=== PATIENT | female | born 1965 | race African-American/Black ===

== ENCOUNTER 2016-06-22 18:24 | Emergency (ER) ==
--- NOTE | 2016-06-22 18:59 | PROVIDER DOCUMENTATION ---
Addendum entered and electronically signed by Orion Sheets MD 06/22/16 23:11: Departure - Departure DIAGNOSIS: Post-menopausal bleeding Fibroid tumor Qualifiers: Uterine leiomyoma location: unspecified location Qualified Code(s): D25.9 - Leiomyoma of uterus, unspecified Disposition: HOME 01 Certified Medical Emergency: Emergent Condition: Good Prescriptions: Ferrous Sulfate 325 mg PO BID #90 tablet. Hydrocodone/Acetaminophen [[place] 5-325 Tablet] 1 each PO Q4-6H PRN PRN #12 tablet PRN Reason: Pain Referrals: None,PCP [Primary Care Provider] - Elizabeth Rogel MD [STAFF PHYSICIAN] - Original Note: HPI-Female /OB/Breast - General Source: reports: patient - History of Present Illness-Female /OB Does patient report she is ?: No Location of complaint: reports: RLQ, LLQ, other (superpubic) Radiation: reports: none Quality of Pain: reports: aching, other (soreness) Severity in ED: reports: severe Onset/Duration: reports: 6 days ago Timing: reports: still present, changing over time, getting worse Vaginal Symptoms: reports: abnormal bleeding (spotting) Vaginal Bleeding Amount: Spotting Urinary Symptoms: denies: anuria, dysuria, dribbling, frequency, hematuria, hesitancy, incontinent, nocturia, polyuria, retention, urgency, low back pain Leakage of Fluid: uncertain ("watery, red spotting") Sexual intercourse history: reports: Not Active Contraception: reports: other (post-menopausal) Associated Symptoms: reports: nausea, swelling/mass in abdomen (superpubic), vomiting. denies: anxiety, back/neck pain, chest pain, constipation, cough, diaphoresis, diarrhea, dizziness, fatigue, fever/chills, joint pain, loss of appetite, malaise, muscle aches, seizure, syncope, weakness, trouble walking Similar Symptoms Previously?: No Recently seen or treated by another doctor?: No - LMP/ History Menstrual Status: post-menopausal <Gutierrez Schulz - Last Filed: 06/22/16 22:59> <Orion Sheets - Last Filed: 06/22/16 23:08> - General Chief Complaint: Female Stated Complaint: GENERAL Time Seen by Provider: 06/22/16 18:40 Allergies/Adverse Reactions: Patient Allergies Allergy/AdvReac Type Severity Reaction Status Date / Time sulfamethoxazole Allergy HIVES Verified 06/22/16 18:53 [From Bactrim] trimethoprim [From Bactrim] Allergy HIVES Verified 06/22/16 18:53 Home Medications: Home Medication List Medication Instructions Recorded Confirmed Last Taken Type Aspirin 81 mg PO DAILY 06/22/16 06/22/16 06/22/16 History Docusate Sodium [Doc-Q-Lace] 100 mg PO PRN PRN 06/22/16 06/22/16 Unknown History Ezetimibe/Simvastatin [Vytorin 1 each PO DAILY 06/22/16 06/22/16 06/22/16 History 10-10 mg Tablet] Ferrous Sulfate 325 mg PO BID #90 tablet. 06/22/16 Unknown Rx Ferrous Sulfate 325 mg PO DAILY 06/22/16 06/22/16 06/22/16 History Hydrocodone/Acetaminophen [[place] 1 each PO Q4-6H PRN PRN #12 tablet 06/22/16 Unknown Rx 5-325 Tablet] LISINOpril [Prinivil] 10 mg PO DAILY 06/22/16 06/22/16 06/22/16 History Ranitidine [Zantac] 300 mg PO BID 06/22/16 06/22/16 06/22/16 History - History of Present Illness-Female /OB Nature of Presenting Problem: Pt is a 50 yof who presents to ER with CC of vaginal spotting x4 days. Pt reports that she has not had a menstrual cycle x2 years, but started to have moderate to severe bilateral lower quadrant cramping on Saturday, still present , and on Saturday began to have bright red, watery, vaginal spotting that has gotten progressively worse and became 10/10 today. Pt reports that this morning , she drank several cups of coffees, but vomited it up this morning at approximately 0900. Pt reports that she has only vomited 1 time today, but does report that her abdominal cramping has made her nauseas. (Gutierrez Schulz) Review of Systems - Adult - REVIEW OF SYSTEMS - ADULT Constitutional: denies: chills, fever, fatique, night sweats, weight gain, weight loss Eyes: reports: no symptoms reported Ears, Nose, Mouth & Throat: reports: no symptoms reported Cardiovascular: denies: chest pain, edema, heart murmur, irregular heart rate, orthopnea, palpitations, poor circulation, PND, syncope Respiratory: denies: chronic cough, cough, dyspnea on exertion, excessive sputum production, hemoptysis, pleurisy, shortness of breath, wheezing Gastrointestinal: reports: abdominal pain, nausea, vomiting. denies: hematemesis, constipation, diarrhea, difficulty swallowing, frequent heartburn, poor appetite, rectal bleeding Genitourinary: reports: other (spotting). denies: dysuria, discharge, frequency , flank pain, frequent UTI's, hematuria, hesitency, incontinence, urinary retention, urgency Musculoskeletal: reports: no symptoms reported Integumentary: reports: no symptoms reported Neurological: reports: no symptoms reported Psychiatric: reports: no symptoms reported Endocrine: reports: no symptoms reported Hematologic/Lymphatic: reports: no symptoms reported Allergic/Immunologic: reports: no symptoms reported All Other Systems: Reviewed and Negative <Gutierrez Schulz - Last Filed: 06/22/16 22:59> Past History - Adult - PAST MEDICAL HISTORY-ADULT Review of Records: reports: Nursing Assessment Review, Medications Reviewed Obstetrical/Gynecological: reports: fibroids Endocrine/Immune: reports: Diabetes Diabetes Type: Type 1 - IMMUNIZATION STATUS Childhood Immunizations: See Nurse Assessment Flu Vaccine: See Nurse Assessment <Gutierrez Schulz - [place] Filed: 06/22/16 22:59> Physical Exam-General - PHYSICAL EXAM-ADULT Initial Vital Signs Reviewed: Yes - CONSTITUTIONAL General Appearance: appears well, alert, moderate distress. negative: no apparent distress, mild distress, severe distress, cachetic, obese, thin, anxious, lethargic, slow to respond, obtunded, combative - HEAD, EARS, NOSE, MOUTH & THROAT HENMT: normocephalic/atraumatic, moist mucous membranes, normal ENT inspection. negative: hearing deficit, pharyngeal erythema, tonsillar exudate - NECK Neck: non-tender, full range of motion, supple. negative: C-spine tenderness, limited range of motion, lymphadenopathy - RESPIRATORY Respiratory: chest non-tender, lungs clear, normal breath sounds. negative: respiratory distress, decreased breath sounds, accessory muscle use, wheezing - CARDIOVASCULAR Cardiovascular: normal peripheral pulses, regular rate, rhythm. negative: bradycardia, tachycardia, irregularly irregular - GASTROINTESTINAL (ABDOMEN) Abdominal Exam: normal bowel sounds, tenderness (gneralized; moreprominent in bilateral lower quadrants), mass (superpubic). negative: non tender, soft, abnormal bowel sounds, distended, guarding, rigid, rebound - LYMPHATIC Lymphatic: no adenopathy. negative: axilla node tender, cervical node tenderness, inguinal node tender - MUSCULOSKELETAL Back Exam: no CVA tenderness, no vertebral tenderness. negative: CVA tenderness , decreased range of motion, muscle spasm, swelling, vertebral tenderness Extremity: normal range of motion, non-tender, normal gait. negative: calf tenderness, deformity, erythema, inflammation, pulse deficit, pedal edema, slow capillary refill, swelling, tenderness - SKIN Integumentary: normal color, normal turgor, warm/dry. negative: abrasion(s), erythema, swelling, warm - NEUROLOGIC Neurologic: grossly normal, no motor/sensory deficits. negative: facial droop, focal weakness, motor weakness, sensory deficit - PSYCHIATRIC Psych/Mental Status: normal mood/affect, normal thought content, normal thought process, oriented x 3 <Gutierrez Schulz - Last Filed: 06/22/16 22:59> Progress - REASSESSMENT Reassessment #1 Time Reassessed: 22:55 Status: other (Dr. Sheets discussed results of pt's radiology and pt requested to be admitted so she may see a CANCER PROGRAM COORDINATOR in the morning. Pt was also hypotensive (92/50)) - CT/MRI 1 CT Study: Abdomen, Pelvis Impression: See EMR Report (Large pelvic mass, measuring 11.5x10.7x11.6cm; This may be enlarged uterus with multiple fibroids, largest measuring about 10x7.3cm and necrotic; Constipation; Retained fluid in small bowel.) - CONSULTS/PCP/HOSPITALIST Notification #1 *Consult/PCP/Hospitalist*: Dr. Estrada (Gynocologist) Time Discussed: 22:56 Consult Disposition: other (Have pt follow up with Dr. oRgel on Saturday) <Gutierrez Schulz - Last Filed: 06/22/16 22:59> <Orion Sheets - Last Filed: 06/22/16 23:08> - PLAN OF CARE/RESULTS Progress/Plan/Lab Results: POC: Urine labs/Renal studies Vital Signs - 24 hr 06/22/16 18:27 Temperature 98.6 F Pulse Rate 90 Respiratory 18 Rate Blood Pressure 101/51 O2 Sat by Pulse 98 Oximetry Orders Category Date Time Status CT ABD/PELVIS W/ IV CONT ONLY [CT] Stat Exams 06/22/16 19:01 Taken BMP [BASIC METABOLIC PANEL] [CHEM] Stat Lab 06/22/16 19:00 Completed CBC WITH ELECTRONIC DIFF [HEME] Stat Lab 06/22/16 19:00 Completed UA NIMS W/REFLEX CULT [URINALYSIS] Stat Lab 06/22/16 20:29 Completed Morphine Med 06/22/16 21:06 Discontinued 4 mg IV NOW ONE Ondansetron [Zofran] Med 06/22/16 21:06 Discontinued 4 mg IV NOW ONE Laboratory Tests 06/22/16 06/22/16 06/22/16 19:00 19:00 20:29 WBC 14.63 H RBC 3.76 L Hgb 11.8 L Hct 34.8 L MCV 92.6 MCH 31.4 H MCHC 33.9 RDW Std Deviation 13.0 Plt Count 308 MPV 10.4 Immature Gran % (Auto) 1.0 H Neut % (Auto) 73.9 Lymph % (Auto) 16.4 L [place] % (Auto) 7.9 Eos % (Auto) 0.7 Baso % (Auto) 0.1 Immature Gran # (Auto) 0.14 H Neut # (Auto) 10.81 H Lymph # (Auto) 2.40 [place] # (Auto) 1.16 H Eos # (Auto) 0.10 Baso # (Auto) 0.02 Sodium 139 Potassium 3.8 Chloride 102 Carbon Dioxide 22 L Anion Gap 15 BUN 19 Creatinine 1.0 H Estimated GFR/1.73 m2 59 BUN/Creatinine Ratio 19 Glucose 78 Calculated Osmolality 279 Calcium 9.6 Urine Source CLEAN CATCH Urine Color YELLOW Urine Turbidity HAZY Urine pH 5.5 Ur Specific [place] 1.028 Urine Protein 100 A Ur Glucose (Stick) NEGATIVE Ur Ketones (Stick) 10 A Urine Blood MODERATE A Urine Nitrite NEGATIVE Urine Bilirubin SMALL A Urobilinogen Dipstick 4 A Urine Leukocytes NEGATIVE Urine WBC (Auto) <10 Urine RBC (Auto) <10 U Epithel Cells (Auto) >10 A Urine Bacteria (Auto) 1+ (Gutierrez Schulz) Departure - Departure Time of Disposition Order: 22:56 <Gutierrez Schulz - Last Filed: 06/22/16 22:59> - Departure Time of Disposition Order: 23:00 Certified Medical Emergency: Emergent <Orion Sheets - Last Filed: 06/22/16 23:08> - Departure DIAGNOSIS: Post-menopausal bleeding Fibroid tumor Qualifiers: Uterine leiomyoma location: unspecified location Qualified Code(s): D25.9 - Leiomyoma of uterus, unspecified Disposition: HOME 01 Condition: Good Prescriptions: Ferrous Sulfate 325 mg PO BID #90 tablet. Hydrocodone/Acetaminophen [[place]idge 5-325 Tablet] 1 each PO Q4-6H PRN PRN #12 tablet PRN Reason: Pain Referrals: None,PCP [Primary Care Provider] - Attestation - Scribe Verification/Attestation Scribe:: Gutierrez Schulz Acting as Scribe for:: Orion Sheets Scribe documention review:: This chart was documented by a scribe and accurately reflects the service the provider performed and the decisions made by the provider. <Gutierrez Schulz - Last Filed: 06/22/16 22:59> Physician Attestation
[2016-06-22 19:15] LABS: MANUAL DIFF NEEDED? NO
[2016-06-22 19:18] LABS: BASO% 0.1 % (0.0-0.8); EOS% 0.7 % (0.0-10.0); HEMATOCRIT 34.8 % (37.0-47.0); HEMOGLOBIN 11.8 g/dL (12.0-16.0); IMM GRAN# 0.14 X1000 (0.0-0.04); LYMPH% 16.4 % (20.5-51.1); MCH 31.4 PG (27-31); MCHC 33.9 g/dL (33-37); MCV 92.6 FL (81-99); MONO# 1.16 X1000 (0.11-0.59); MONO% 7.9 % (1.7-9.3); MPV 10.4 FL (7.4-10.4); NEUT% 73.9 % (42.2-75.2); PLT 308 X1000 (130-400); RBC 3.76 XMIL (4.2-5.4)
[2016-06-22 19:44] LABS: CALCIUM 9.6 mg/dL (8.8-10.2); POTASSIUM 3.8 mmol/L (3.5-5.1)
[2016-06-22 20:36] LABS: URINE CULTURE NEEDED? NO; URINE MICRO REVIEW NEEDED? NO; URINE SOURCE CLEAN CATCH
[2016-06-22 20:47] LABS: BILIRUBIN URINE SMALL (NEGATIVE); BLOOD URINE MODERATE (NEGATIVE); COLOR YELLOW; GLUCOSE URINE NEGATIVE (NEGATIVE); LEUKOCYTES URINE NEGATIVE (NEGATIVE); NITRITE URINE NEGATIVE (NEGATIVE); PH URINE 5.5; PROTEIN URINE 100 mg/dL (NEGATIVE); SP GRAVITY URINE 1.028; TURBIDITY URINE HAZY (CLEAR); UR EPITHELIAL CELLS >10 /HPF (<10); URINE BACTERIA 1+ /HPF; URINE RBC <10 /HPF (<10); URINE WBC <10 /HPF (<10); UROBILINOGEN URINE 4 mg/dL (NORMAL)
[2016-06-22] MEDS ORDERED: ZOFRAN IV ONE (21:06)
[2016-06-22] MEDS ORDERED: MORPHINE IV ONE (21:06)
[2016-06-22 23:41] VITALS: BP 115/54
--- NOTE | 2016-06-23 09:40 | Diag Imaging Result Document ---
PROCEDURE NAME: CT ABD/PELVIS W/ IV CONT ONLY - 06/22/2016 CT ABDOMEN AND PELVIS WITH IV CONTRAST ONLY: Exam performed with intravenous contrast only per request of the referring provider. A dose-reduction protocol was used. COMPARISON: No comparison exam. FINDINGS: There is a nonspecific 5 mm noncalcified nodule at the lateral left lung base. There are no substantial abnormalities of the liver, adrenal glands, or pancreas identified. There are calcified granulomas from old granulomatous disease, and there is a nonspecific tiny low-density area of the spleen. The spleen is normal size. There are no calcified gallstones seen. The bilateral kidneys enhance homogeneously. There is no hydronephrosis. There are no substantially enlarged lymph nodes identified. There is a large heterogeneous pelvic mass which measures 11.5 x 10.7 x 11.6 cm. There is a 10 x 7.3 cm low-density area within the mass, which may represent necrotic fibroid. There is a 4.7 x 4.3 cm pedunculated lesion at the left side of the mass, which may represent necrotic fibroid. The pelvic mass may represent an enlarged uterus with multiple fibroids, some of which are necrotic. The fibroids may be benign or malignant. The urinary bladder is displaced anteriorly and to the right by the pelvic mass. There is no substantial free fluid identified, although there is possibly a small amount of free fluid in the posterior pelvis. There is retained fluid in the small bowel. There is no substantial small bowel distention identified. There is retained fecal debris in the colon suggesting constipation. There is no abscess identified. There is no free air. IMPRESSION: Large heterogeneous pelvic mass measuring 11.5 x 10.7 x 11.6 cm. This may represent an enlarged uterus with multiple fibroids, some of which are necrotic. The largest necrotic area measures 10 x 7.3 cm. If this does represent enlarged fibroid uterus, the fibroids may be benign or malignant. Retained fluid in small bowel. No substantial small bowel distention. Constipation. Nonspecific 5 mm nodule at left lung base. Preliminary results were provided at 9:33 p.m. on 06/22/2016. [facility]
== END 2016-06-22 23:40 | disposition home or self-care (01) ==
LOC: ED 18:24
DX: D25.9 Leiomyoma of uterus, unspecified (principal); N95.0 Postmenopausal bleeding; R10.31 Right lower quadrant pain; R10.32 Left lower quadrant pain; R10.30 Lower abdominal pain, unspecified; R11.2 Nausea with vomiting, unspecified; E10.9 Type 1 diabetes mellitus without complications; R19.00 Intra-abdominal and pelvic swelling, mass and lump, unspecified site; Z79.899 Other long term (current) drug therapy; Z79.82 Long term (current) use of aspirin
CPT/HCPCS: 74177; 80048; 81001; 82948; 85025; J2270; J2405; Q9967

== ENCOUNTER 2016-06-30 10:31 | Inpatient (IN) ==
--- NOTE | 2016-06-30 11:07 | PROVIDER DOCUMENTATION ---
HPI-Abdominal Pain/GI Problem - General Chief Complaint: Female Stated Complaint: RECHECK Time Seen by Provider: 06/30/16 10:57 Source: patient Allergies/Adverse Reactions: Patient Allergies Allergy/AdvReac Type Severity Reaction Status Date / Time sulfamethoxazole Allergy HIVES Verified 06/30/16 12:18 [From Bactrim] trimethoprim [From Bactrim] Allergy HIVES Verified 06/30/16 12:18 Home Medications: Home Medication List Medication Instructions Recorded Confirmed Last Taken Type Aspirin 81 mg PO DAILY 06/22/16 06/30/16 06/30/16 08:30 History Docusate Sodium [Doc-Q-Lace] 100 mg PO PRN PRN 06/22/16 06/30/16 Unknown History Ezetimibe/Simvastatin [Vytorin 1 each PO DAILY 06/22/16 06/30/16 06/30/16 08:30 History 10-10 mg Tablet] Ferrous Sulfate 325 mg PO BID #90 tablet. 06/22/16 06/30/16 06/30/16 08:30 Rx Hydrocodone/Acetaminophen [Codorus 1 each PO Q4-6H PRN PRN #12 tablet 06/22/1603/0806/27/16 21:00 Rx 5-325 Tablet] LISINOpril [Prinivil] 10 mg PO DAILY 06/22/16 06/30/16 06/30/16 08:30 History Ranitidine [Zantac] 300 mg PO BID 06/22/16 06/30/16 06/30/16 08:30 History Insulin Aspart Prot/Insuln Asp 7 unit SQ DAILY 06/30/16 06/30/16 06/30/16 07:30 History [Novolog Mix 70-30 Vial] Insulin Glargine [Lantus] 10 unit SUBQ QHS 06/30/16 06/30/16 06/29/16 22:00 History - History of Present Illness-ABD Nature of Presenting Problems: A 50 y/o F with multiple PMH presented to ED with worsening of abdominal pain, was seen a week ago and was diagnosed with possible fibroids and possible necrotic area, was given norco and was recommended out pt follow up with OBGYN, pt has pending appt after 4 days, pt taking pain medications upto a point when pain is progressing and getting worse, has lower quadrant pain and noted mild spotting which was present in the past, denies n/v/d/mi/CP/SOB. Reviewed CT scan results from previous visit Review of Systems - Adult - REVIEW OF SYSTEMS - ADULT Constitutional: reports: no symptoms reported Eyes: reports: no symptoms reported Ears, Nose, Mouth & Throat: reports: no symptoms reported Cardiovascular: reports: no symptoms reported Respiratory: reports: no symptoms reported Gastrointestinal: reports: see HPI Genitourinary: reports: no symptoms reported Musculoskeletal: reports: no symptoms reported Integumentary: reports: no symptoms reported Neurological: reports: no symptoms reported Psychiatric: reports: no symptoms reported Endocrine: reports: no symptoms reported Hematologic/Lymphatic: reports: no symptoms reported Allergic/Immunologic: reports: no symptoms reported All Other Systems: Reviewed and Negative Past History - Adult - PAST MEDICAL HISTORY-ADULT Review of Records: reports: Old Records Reviewed, Nursing Assessment Review, Medications Reviewed, Social history reviewed & non-contributory. Major Childhood Illnesses: reports: denies history Cardiovascular: reports: denies history Respiratory: reports: denies history Gastrointestinal: reports: denies history Obstetrical/Gynecological: reports: fibroids Genitourinary: reports: denies history Musculoskeletal: reports: denies history Neurological: reports: denies history Endocrine/Immune: reports: Diabetes Other Conditions: reports: denies history - IMMUNIZATION STATUS Childhood Immunizations: See Nurse Assessment Flu Vaccine: See Nurse Assessment - FAMILY HISTORY Family History: reviewed, not pertinent Physical Exam-General - PHYSICAL EXAM-ADULT Initial Vital Signs Reviewed: Yes - CONSTITUTIONAL General Appearance: appears well, mild distress - EYES Eyes: PERRL/EOMI, pink conjunctivae - HEAD, EARS, NOSE, MOUTH & THROAT HENMT: normocephalic/atraumatic, moist mucous membranes, normal ENT inspection - NECK Neck: non-tender, full range of motion - RESPIRATORY Respiratory: chest non-tender, lungs clear, normal breath sounds, no pleuratic chest pain, no respiratory distress, no accessory muscle use - CARDIOVASCULAR Cardiovascular: normal peripheral pulses, regular rate, rhythm, no edema - GASTROINTESTINAL (ABDOMEN) Abdominal Exam: normal bowel sounds, tenderness (moderate tenderness in lower quadrants, noted lower abdominal mass on palpation tender) - GENITOURINARY Female Genitalia/Pelvic Exam: deferred Rectal Exam: deferred - MUSCULOSKELETAL Back Exam: normal inspection, no CVA tenderness, no vertebral tenderness Extremity: normal range of motion, non-tender, normal gait, normal inspection - SKIN Integumentary: normal color, normal turgor - NEUROLOGIC Neurologic: home care music therapist II-XII nml as tested, grossly normal - PSYCHIATRIC Psych/Mental Status: normal mood/affect, normal thought content Progress - PLAN OF CARE/RESULTS Progress/Plan/Lab Results: Laboratory Tests 06/30/16 06/30/16 06/30/16 11:52 12:15 12:15 WBC 16.92 H RBC 3.74 L Hgb 11.8 L Hct 34.8 L MCV 93.0 MCH 31.6 H MCHC 33.9 RDW Std Deviation 13.2 Plt Count 494 H MPV 10.3 Immature Gran % (Auto) 1.7 H Neut % (Auto) 76.6 H Lymph % (Auto) 14.7 L Wirt % (Auto) 5.9 Eos % (Auto) 0.9 Baso % (Auto) 0.2 Immature Gran # (Auto) 0.29 H Neut # (Auto) 12.96 H Lymph # (Auto) 2.48 Wirt # (Auto) 0.99 H Eos # (Auto) 0.16 Baso # (Auto) 0.04 Sodium 137 Potassium 3.4 L Chloride 97 L Carbon Dioxide 25 Anion Gap 15 BUN 7 L Creatinine 0.7 Estimated GFR/1.73 m2 > 60 BUN/Creatinine Ratio 10 Glucose 320 H POC Glucose Calculated Osmolality 284 Calcium 9.9 Total Bilirubin 0.41 AST 9 L ALT 7 L Alkaline Phosphatase 110 H Total Protein 7.2 Albumin 3.2 L Globulin 4.0 Albumin/Globulin Ratio 0.8 Amylase 46 Lipase 8 L Urine Source CLEAN CATCH Urine Color YELLOW Urine Turbidity CLEAR Urine pH 5.5 Ur Specific [place] 1.027 Urine Protein 50 A Ur Glucose (Stick) >1000 A Ur Ketones (Stick) NEGATIVE Urine Blood NEGATIVE Urine Nitrite NEGATIVE Urine Bilirubin NEGATIVE Urobilinogen Dipstick 2 A Urine Leukocytes NEGATIVE Urine WBC (Auto) <10 Urine RBC (Auto) <10 U Epithel Cells (Auto) <10 Urine Bacteria (Auto) NEGATIVE 06/30/16 15:09 WBC RBC Hgb Hct MCV MCH MCHC RDW Std Deviation Plt Count MPV Immature Gran % (Auto) Neut % (Auto) Lymph % (Auto) Wirt % (Auto) Eos % (Auto) Baso % (Auto) Immature Gran # (Auto) Neut # (Auto) Lymph # (Auto) Wirt # (Auto) Eos # (Auto) Baso # (Auto) Sodium Potassium Chloride Carbon Dioxide Anion Gap BUN Creatinine Estimated GFR/1.73 m2 BUN/Creatinine Ratio Glucose POC Glucose 40 L D Calculated Osmolality Calcium Total Bilirubin AST ALT Alkaline Phosphatase Total Protein Albumin Globulin Albumin/Globulin Ratio Amylase Lipase Urine Source Urine Color Urine Turbidity Urine pH Ur Specific [place] Urine Protein Ur Glucose (Stick) Ur Ketones (Stick) Urine Blood Urine Nitrite Urine Bilirubin Urobilinogen Dipstick Urine Leukocytes Urine WBC (Auto) Urine RBC (Auto) U Epithel Cells (Auto) Urine Bacteria (Auto) Vital Signs Temp Pulse Resp BP Pulse Ox 06/30/16 10:38 98.4 F 88 20 122/77 100 sulfamethoxazole [From Bactrim] Allergy (Verified 06/30/16 12:18) HIVES trimethoprim [From Bactrim] Allergy (Verified 06/30/16 12:18) HIVES Aspirin 81 mg PO DAILY 06/22/16 Docusate Sodium [Doc-Q-Lace] 100 mg PO PRN PRN 06/22/16 Ezetimibe/Simvastatin [Vytorin 10-10 mg Tablet] 1 each PO DAILY 06/22/16 Ferrous Sulfate 325 mg PO BID #90 tablet. 06/22/16 Hydrocodone/Acetaminophen [Codorus 5-325 Tablet] 1 each PO Q4-6H PRN PRN #12 tablet 06/22/16 LISINOpril [Prinivil] 10 mg PO DAILY 06/22/16 Ranitidine [Zantac] 300 mg PO BID 06/22/16 Insulin Aspart Prot/Insuln Asp [Novolog Mix 70-30 Vial] 7 unit SQ DAILY Insulin Glargine [Lantus] 10 unit SUBQ QHS 06/30/16 Dietary Diet NPO Start Sat Jun 30 1100 Laboratory 06/30/16 06/30/16 06/30/16 15:09 12:15 12:15 WBC 16.92 H RBC 3.74 L Hgb 11.8 L Hct 34.8 L MCV 93.0 MCH 31.6 H MCHC 33.9 RDW Std Deviation 13.2 Plt Count 494 H MPV 10.3 Immature Gran % (Auto) 1.7 H Neut % (Auto) 76.6 H Lymph % (Auto) 14.7 L Wirt % (Auto) 5.9 Eos % (Auto) 0.9 Baso % (Auto) 0.2 Immature Gran # (Auto) 0.29 H Neut # (Auto) 12.96 H Lymph # (Auto) 2.48 Wirt # (Auto) 0.99 H Eos # (Auto) 0.16 Baso # (Auto) 0.04 Sodium 137 Potassium 3.4 L Chloride 97 L Carbon Dioxide 25 Anion Gap 15 BUN 7 L Creatinine 0.7 Estimated GFR/1.73 m2 > 60 BUN/Creatinine Ratio 10 Glucose 320 H POC Glucose 40 L D Calculated Osmolality 284 Calcium 9.9 Total Bilirubin 0.41 AST 9 L ALT 7 L Alkaline Phosphatase 110 H Total Protein 7.2 Albumin 3.2 L Globulin 4.0 Albumin/Globulin Ratio 0.8 Amylase 46 Lipase 8 L Urine Source Urine Color Urine Turbidity Urine pH Ur Specific [place] Urine Protein Ur Glucose (Stick) Ur Ketones (Stick) Urine Blood Urine Nitrite Urine Bilirubin Urobilinogen Dipstick Urine Leukocytes Urine WBC (Auto) Urine RBC (Auto) U Epithel Cells (Auto) Urine Bacteria (Auto) 06/30/16 11:52 WBC RBC Hgb Hct MCV MCH MCHC RDW Std Deviation Plt Count MPV Immature Gran % (Auto) Neut % (Auto) Lymph % (Auto) Wirt % (Auto) Eos % (Auto) Baso % (Auto) Immature Gran # (Auto) Neut # (Auto) Lymph # (Auto) Wirt # (Auto) Eos # (Auto) Baso # (Auto) Sodium Potassium Chloride Carbon Dioxide Anion Gap BUN Creatinine Estimated GFR/1.73 m2 BUN/Creatinine Ratio Glucose POC Glucose Calculated Osmolality Calcium Total Bilirubin AST ALT Alkaline Phosphatase Total Protein Albumin Globulin Albumin/Globulin Ratio Amylase Lipase Urine Source CLEAN CATCH Urine Color YELLOW Urine Turbidity CLEAR Urine pH 5.5 Ur Specific [place] 1.027 Urine Protein 50 A Ur Glucose (Stick) >1000 A Ur Ketones (Stick) NEGATIVE Urine Blood NEGATIVE Urine Nitrite NEGATIVE Urine Bilirubin NEGATIVE Urobilinogen Dipstick 2 A Urine Leukocytes NEGATIVE Urine WBC (Auto) <10 Urine RBC (Auto) <10 U Epithel Cells (Auto) <10 Urine Bacteria (Auto) NEGATIVE Vital Signs Temp Pulse Resp BP Pulse Ox 06/30/16 10:38 98.4 F 88 20 122/77 100 sulfamethoxazole [From Bactrim] Allergy (Verified 06/30/16 12:18) HIVES trimethoprim [From Bactrim] Allergy (Verified 06/30/16 12:18) HIVES Aspirin 81 mg PO DAILY 06/22/16 Docusate Sodium [Doc-Q-Lace] 100 mg PO PRN PRN 06/22/16 Ezetimibe/Simvastatin [Vytorin 10-10 mg Tablet] 1 each PO DAILY 06/22/16 Ferrous Sulfate 325 mg PO BID #90 tablet. 06/22/16 Hydrocodone/Acetaminophen [Codorus 5-325 Tablet] 1 each PO Q4-6H PRN PRN #12 tablet 06/22/16 LISINOpril [Prinivil] 10 mg PO DAILY 06/22/16 Ranitidine [Zantac] 300 mg PO BID 06/22/16 Insulin Aspart Prot/Insuln Asp [Novolog Mix 70-30 Vial] 7 unit SQ DAILY Insulin Glargine [Lantus] 10 unit SUBQ QHS 06/30/16 Dietary Diet NPO Start Sat Jun 30 1100 Laboratory 06/30/16 06/30/16 06/30/16 15:09 12:15 12:15 WBC 16.92 H RBC 3.74 L Hgb 11.8 L Hct 34.8 L MCV 93.0 MCH 31.6 H MCHC 33.9 RDW Std Deviation 13.2 Plt Count 494 H MPV 10.3 Immature Gran % (Auto) 1.7 H Neut % (Auto) 76.6 H Lymph % (Auto) 14.7 L Wirt % (Auto) 5.9 Eos % (Auto) 0.9 Baso % (Auto) 0.2 Immature Gran # (Auto) 0.29 H Neut # (Auto) 12.96 H Lymph # (Auto) 2.48 Wirt # (Auto) 0.99 H Eos # (Auto) 0.16 Baso # (Auto) 0.04 Sodium 137 Potassium 3.4 L Chloride 97 L Carbon Dioxide 25 Anion Gap 15 BUN 7 L Creatinine 0.7 Estimated GFR/1.73 m2 > 60 BUN/Creatinine Ratio 10 Glucose 320 H POC Glucose 40 L D Calculated Osmolality 284 Calcium 9.9 Total Bilirubin 0.41 AST 9 L ALT 7 L Alkaline Phosphatase 110 H Total Protein 7.2 Albumin 3.2 L Globulin 4.0 Albumin/Globulin Ratio 0.8 Amylase 46 Lipase 8 L Urine Source Urine Color Urine Turbidity Urine pH Ur Specific [place] Urine Protein Ur Glucose (Stick) Ur Ketones (Stick) Urine Blood Urine Nitrite Urine Bilirubin Urobilinogen Dipstick Urine Leukocytes Urine WBC (Auto) Urine RBC (Auto) U Epithel Cells (Auto) Urine Bacteria (Auto) 06/30/16 11:52 WBC RBC Hgb Hct MCV MCH MCHC RDW Std Deviation Plt Count MPV Immature Gran % (Auto) Neut % (Auto) Lymph % (Auto) Wirt % (Auto) Eos % (Auto) Baso % (Auto) Immature Gran # (Auto) Neut # (Auto) Lymph # (Auto) Wirt # (Auto) Eos # (Auto) Baso # (Auto) Sodium Potassium Chloride Carbon Dioxide Anion Gap BUN Creatinine Estimated GFR/1.73 m2 BUN/Creatinine Ratio Glucose POC Glucose Calculated Osmolality Calcium Total Bilirubin AST ALT Alkaline Phosphatase Total Protein Albumin Globulin Albumin/Globulin Ratio Amylase Lipase Urine Source CLEAN CATCH Urine Color YELLOW Urine Turbidity CLEAR Urine pH 5.5 Ur Specific [place] 1.027 Urine Protein 50 A Ur Glucose (Stick) >1000 A Ur Ketones (Stick) NEGATIVE Urine Blood NEGATIVE Urine Nitrite NEGATIVE Urine Bilirubin NEGATIVE Urobilinogen Dipstick 2 A Urine Leukocytes NEGATIVE Urine WBC (Auto) <10 Urine RBC (Auto) <10 U Epithel Cells (Auto) <10 Urine Bacteria (Auto) NEGATIVE - CT/MRI 1 CT Study: Abdomen Impression: See EMR Report (worsening from the previous one) Comparison with other Films: changes noted - CONSULTS/PCP/HOSPITALIST Notification #1 *Consult/PCP/Hospitalist*: Dr Milton Time Discussed: 15:44 Consult Disposition: Admit #2 Consult: Dr Pebbles MEDRANO Consult Disposition: Will see in ED Departure - Departure Time of Disposition Order: 15:45 DIAGNOSIS: Pelvic mass in female, Intractable abdominal pain, Post-menopausal bleeding Disposition: ADMITTED INPATIENT 09 Certified Medical Emergency: Emergent Condition: Stable
[2016-06-30 12:06] LABS: URINE CULTURE NEEDED? NO; URINE MICRO REVIEW NEEDED? NO; URINE SOURCE CLEAN CATCH
[2016-06-30 12:08] LABS: BILIRUBIN URINE NEGATIVE (NEGATIVE); BLOOD URINE NEGATIVE (NEGATIVE); COLOR YELLOW; GLUCOSE URINE >1000 mg/dL (NEGATIVE); LEUKOCYTES URINE NEGATIVE (NEGATIVE); NITRITE URINE NEGATIVE (NEGATIVE); PH URINE 5.5; PROTEIN URINE 50 mg/dL (NEGATIVE); SP GRAVITY URINE 1.027; TURBIDITY URINE CLEAR (CLEAR); UROBILINOGEN URINE 2 mg/dL (NORMAL)
[2016-06-30 12:10] LABS: UR EPITHELIAL CELLS <10 /HPF (<10); URINE BACTERIA NEGATIVE /HPF; URINE RBC <10 /HPF (<10); URINE WBC <10 /HPF (<10)
[2016-06-30 12:35] LABS: MANUAL DIFF NEEDED? NO
[2016-06-30 12:43] LABS: BASO% 0.2 % (0.0-0.8); EOS# 0.16 X1000 (0.0-0.7); EOS% 0.9 % (0.0-10.0); HEMATOCRIT 34.8 % (37.0-47.0); HEMOGLOBIN 11.8 g/dL (12.0-16.0); IMM GRAN# 0.29 X1000 (0.0-0.04); IMM GRAN% 1.7 % (0.0-0.5); LYMPH# 2.48 X1000 (1.2-3.4); LYMPH% 14.7 % (20.5-51.1); MCH 31.6 PG (27-31); MCHC 33.9 g/dL (33-37); MONO# 0.99 X1000 (0.11-0.59); MONO% 5.9 % (1.7-9.3); MPV 10.3 FL (7.4-10.4); NEUT% 76.6 % (42.2-75.2); PLT 494 X1000 (130-400); RBC 3.74 XMIL (4.2-5.4)
[2016-06-30 13:09] LABS: AGAP 15; ALBUMIN 3.2 g/dL (3.5-5.0); ALKALINE PHOSPHATASE 110 U/L (32-104); AMYLASE 46 U/L (20-200); BUN 7 mg/dL (8-22); CALCIUM 9.9 mg/dL (8.8-10.2); CHLORIDE 97 mmol/L (98-107); COSMO 284; GOT 9 U/L (10-30); GPT 7 U/L (10-36); LIPASE 8 U/L (13-60); POTASSIUM 3.4 mmol/L (3.5-5.1); SODIUM 137 mmol/L (136-145); TCO2 25 mmol/L (25-35); TOTAL BILIRUBIN 0.41 mg/dL (0.20-1.00); TOTAL PROTEIN 7.2 g/dL (6.3-8.3)
--- NOTE | 2016-06-30 14:16 | Diag Imaging Result Document ---
PROCEDURE NAME: CT ABD/PELVIS W/ IV CONT ONLY - 06/30/2016 CT ABDOMEN AND PELVIS WITH IV CONTRAST ONLY: Exam performed with intravenous contrast only per request of the referring provider. A dose-reduction protocol was used. COMPARISON: 06/22/2016. FINDINGS: There is a large lobulated, heterogeneous pelvic mass again seen. The mass appears a bit larger compared to the previous exam. There is a small amount of free fluid in the posterior pelvis. There is no evidence of bowel obstruction. There is retained fecal debris in the colon, which appears to have decreased mildly. There is no abscess identified. There is no free air. There are no acute abnormalities of the liver, spleen, adrenal glands, or pancreas identified. There are no calcified gallstones seen. The bilateral kidneys enhance homogeneously. There is no substantial hydronephrosis. IMPRESSION: 1. Some interval enlargement of the large pelvic mass which was seen on the previous exam. Small amount of free fluid in posterior pelvis. 2. No bowel obstruction. Slight improvement in constipation compared to prior. 3. No abscess. No free air.
[2016-06-30] MEDS ORDERED: ZOFRAN IV ONE (14:59)
[2016-06-30] MEDS ORDERED: ZOSYN 4.5 GM/NS 100 ML IV ONE (14:59)
[2016-06-30] MEDS ORDERED: DILAUDID IV ONE (14:59)
[2016-06-30] MEDS ORDERED: ZOFRAN IV PRN (16:37)
[2016-06-30] MEDS ORDERED: DILAUDID IV PRN (16:39)
[2016-06-30] MEDS ORDERED: PROTONIX IV SCH (16:45)
[2016-06-30] MEDS ORDERED: SODIUM CHLORIDE 0.9% INJ SCH (16:45)
[2016-06-30] MEDS ORDERED: NS 1,000 ML IV SCH (16:45)
[2016-06-30] MEDS ORDERED: KLOR-CON PO ONE (16:52)
[2016-06-30] MEDS ORDERED: COLACE PO PRN (16:58)
--- NOTE | 2016-06-30 18:06 | Diag Imaging Result Document ---
PROCEDURE NAME: US PELVIC NON-JOURNEYMAN MEAT CUTTER COMPLETE - 06/30/2016 STUDY: Ultrasound of pelvis. Exam performed using transabdominal and transvaginal probes. There is a large heterogeneous solid appearing mass. This measures approximately 13.7 x 12.9 x 10.3 cm. It is not clear if this arises from the superior uterus. The inferior portion of the uterus has relatively homogeneous echotexture in the myometrium. There is a small amount of fluid in the endometrial canal. There are tiny cervical cysts noted. Neither ovary is discretely visible. There is a small amount of free fluid in the pelvis. IMPRESSION: Large heterogeneous solid appearing mass, measuring approximately 13.7 x 12.9 x 10.3 cm. It is not clear if this arises from the superior uterus. There is a small amount of fluid in the endometrial cavity of the inferior uterus. Neither ovary is visualized. There is a small amount of free fluid in the pelvis.
--- NOTE | 2016-06-30 18:27 | HISTORY AND PHYSICAL ---
CHIEF COMPLAINT: Severe abdominal pain and vaginal bleed. HISTORY OF PRESENT ILLNESS: A 50 years old, female with a past medical history of diabetes, gastroparesis, hypertension, anxiety, right leg DVT 10 years ago, came to the emergency department with a chief complaint of severe abdominal pain, lower abdominal pain, and vaginal bleed. This patient states that she came to the emergency department this month, on the , and was discharged home with p.o. pain medication and follow up by FOREIGN LANGUAGE PROFESSOR. She has an appointment to see her FOREIGN LANGUAGE PROFESSOR doctor this , but because of her severe pain she decided to come back to the emergency department. The emergency department doctor communicated with her FOREIGN LANGUAGE PROFESSOR and the decision of hospitalization was made. This patient states that she started bleeding 6 days prior to the 3rd of this month, at the beginning it was just a mild amount of bleed, but has been increasing with time. This patient also has diabetes, high blood pressure, and gastroparesis. She states that she is tolerating p.o. This patient will be hospitalized for further treatment and FOREIGN LANGUAGE PROFESSOR re-evaluation. REVIEW OF SYSTEMS: General: female complaining of lower abdominal pain, pale. She also states that she has been losing weight, about 25 pounds since last January 2016. The rest of the 14 points of the review of systems were reviewed. All negative except for HPI. PAST MEDICAL HISTORY: Type 2 diabetes, hypertension, anxiety, and gastroparesis. FAMILY HISTORY: Positive for diabetes, hypertension, and breast cancer. SOCIAL HISTORY: No alcohol, no drugs. This patient states that she has been smoking since 1991. At the beginning she used to smoke more than half a pack of cigarettes, but nowadays she is smoking between 3-5 cigarettes per day, and she is trying to get rid of this. She is not working. SURGICAL HISTORY: Tubal ligation in 1994, and she has a right Port-A-Cath that was removed 10 years ago. MEDICATIONS: NovoLog 70/30, 7 units subcutaneous daily. [place] 5 one tablet p.o. q.4-6 hours p.r.n. Lantus 10 units subcutaneous at bedtime. Ranitidine 300 mg p.o. b.i.d. Lisinopril 10 mg p.o. b.i.d. Ferrous sulfate 325 mg p.o. b.i.d. Vytorin 10/10 mg tablet p.o. daily. Docusate 100 mg p.o. p.r.n. Aspirin 81 mg p.o. daily. ALLERGIES: This patient states that she is allergic to Bactrim. PHYSICAL EXAMINATION: VITAL SIGNS: Temperature 98.4 degrees, pulse 88, respiratory rate 20, blood pressure 122/77, oxygen saturation 100% on oxygen. HEENT: Head normocephalic. No trauma. PERRLA. SKIN: Pale. NECK: Supple. No JVD. No masses. Central trachea. CHEST: Clear to auscultation. No wheezing. No rales. She has right upper chest scar, where the Port-A-Cath used to be. ABDOMEN: Soft, tender to palpation in the lower part of the abdomen at the level of the suprapubic area, mostly at the level of the suprapubic area. No signs of peritoneal irritation. EXTREMITIES: No edema. No clubbing. No cyanosis. NEUROLOGICAL EXAMINATION: The patient is alert and oriented x3. No focal neurological deficits. LABORATORY: WBC 16.9, hemoglobin 11.8, hematocrit 34.8, platelets 494,000. Sodium 137, potassium 3.4, chloride 97. Bicarbonate 25, BUN 7, creatinine 0.7, glucose 220, calcium 9.9. AST 9, ALT 7, alkaline phosphatase 110. Albumin 3.2, lipase 8. Urinalysis negative for urine infection. ASSESSMENT AND PLAN: 1. Abdominal pain. This patient had a CT scan of the abdomen and pelvis with IV contrast that showed a large pelvic mass with a small amount of free fluid in posterior pelvis. FOREIGN LANGUAGE PROFESSOR has been consulted, the emergency department doctor already called them. 2. Hypokalemia. We will recheck the potassium daily. I will replace the potassium today. 3. Intractable pain. I will put this patient on a p.r.n. medication p.o. and also IV, will monitor. 4. Mild dehydration. I will put this patient on IV fluids. I will start with normal saline at 75 mL/hour, and for today she is going to have a diet, but she will be n.p.o. after midnight. 5. Diabetes. I will continue with her Lantus 10 subcutaneous at bedtime, and I will put this patient on pattern of blood sugar water and sliding scale insulin. 6. Hypertension. The blood pressure is controlled. I will continue with the same management. 7. Gastroparesis. This patient does not have any signs or symptoms or gastroparesis at this moment. We will monitor. 8. Anxiety. Aware. 9. Further recommendations depending on the hospital course.
--- NOTE | 2016-06-30 19:59 | OB/GYN PROGRESS NOTE ---
Progress Note CONSTITUTIONAL LAW PROFESSOR - . Patient Problems: Current Active Problems Problem Status Diagnosed Intractable abdominal pain Acute Pelvic mass in female Acute Post-menopausal bleeding Acute CONSTITUTIONAL LAW PROFESSOR Progress Note: Vital Signs - 24 hr 06/30/16 06/30/16 18:45 19:17 Temperature 98.1 F 98.7 F Pulse Rate 86 82 Respiratory 18 18 Rate Blood Pressure 129/65 136/72 O2 Sat by Pulse 100 99 Oximetry Consulted by ED to see 50yo postmenopausal patient with necrotic fibroid, abdominal and pelvic pain, h/o postmenopausal bleeding. Patient states that she has known for about 7 months that she had fibroids. Approximately 2 weeks ago she experienced postmenopausal bleeding after not having a period for ~2-3 years. The period lasted about 5 days. 2 days later she presented to ED on 06/22 due to abdominal pain and was diagnosed with necrotic fibroid. She was sent home with pain medication. She returns today because her pain has worsened. Exam: Abd: tender near fundus of uterus at the umbilicus Pelvic: no blood, 20 week sized bulky uterus with abnormal contours A/P: 50yo postmenopausal patient with degenerative fibroid (benign vs malignant ), abdominal and pelvic pain, h/o postmenopausal bleeding -pelvic US -continue analgesics and antipyretics as needed -patient to walk-in to my CONSTITUTIONAL LAW PROFESSOR clinic the morning after discharge. Will perform endometrial biopsy. Patient will likely need hysterectomy. Will plan further management outpatient Thank you for the consult. Please feel free to contact me as needed. -Elizabeth Rogel MD AUTOMOBILE SEAT COVER INSTALLER
[2016-06-30] MEDS ORDERED: LANTUS SUBQ SCH (21:00)
[2016-06-30] MEDS: HUMULIN R SUBQ SCH (21:01)
[2016-06-30] MEDS: NORCO-5 PO PRN (21:04)
[2016-06-30] MEDS: FERROUS SULFATE PO SCH (21:10)
[2016-07-01] MEDS: NORCO-5 PO PRN ×2 (01:43→08:30)
[2016-07-01] MEDS: HUMULIN R SUBQ SCH ×2 (06:24→12:08)
[2016-07-01 06:36] LABS: MANUAL DIFF NEEDED? NO
[2016-07-01 07:26] LABS: AGAP 13; ALBUMIN 2.5 g/dL (3.5-5.0); ALKALINE PHOSPHATASE 90 U/L (32-104); BUN 11 mg/dL (8-22); CALCIUM 8.9 mg/dL (8.8-10.2); CHLORIDE 103 mmol/L (98-107); COSMO 274; GOT 10 U/L (10-30); GPT 6 U/L (10-36); POTASSIUM 3.7 mmol/L (3.5-5.1); SODIUM 138 mmol/L (136-145); TCO2 21 mmol/L (25-35); TOTAL PROTEIN 5.8 g/dL (6.3-8.3)
[2016-07-01 07:38] LABS: BASO% 0.2 % (0.0-0.8); EOS# 0.28 X1000 (0.0-0.7); EOS% 2.2 % (0.0-10.0); HEMATOCRIT 30.1 % (37.0-47.0); HEMOGLOBIN 10.2 g/dL (12.0-16.0); IMM GRAN# 0.21 X1000 (0.0-0.04); IMM GRAN% 1.6 % (0.0-0.5); LYMPH# 2.12 X1000 (1.2-3.4); LYMPH% 16.6 % (20.5-51.1); MCH 31.7 PG (27-31); MCHC 33.9 g/dL (33-37); MCV 93.5 FL (81-99); MPV 10.8 FL (7.4-10.4); NEUT% 72.4 % (42.2-75.2); PLT 380 X1000 (130-400); RBC 3.22 XMIL (4.2-5.4)
[2016-07-01] MEDS: ZETIA PO SCH (08:18)
[2016-07-01] MEDS: ZOCOR PO SCH (08:18)
[2016-07-01] MEDS: PRINIVIL PO SCH (08:19)
[2016-07-01] MEDS: FERROUS SULFATE PO SCH ×2 (08:19→21:08)
[2016-07-01] MEDS: PERCOCET-10 PO PRN ×3 (12:09→21:08)
[2016-07-01] MEDS ORDERED: LANTUS INSULIN (PARKWAY) SUBQ SCH (13:48)
--- NOTE | 2016-07-01 14:26 | PROGRESS NOTE ---
DATE: 07/01/2016 SUBJECTIVE: Patient notes she is still having significant pelvic pain. She states that she is on [place] 5 at home and this is not affective. OBJECTIVE: Vital signs: Temperature 98, pulse 82, respiratory 18, BP 154/75 to 138/67. General: Patient is well developed, well nourished. Currently in no real respiratory distress. She is awake, alert. Neck: Supple. CV: Regular rate. Chest: Relatively clear. Abdomen: Soft. LABORATORIES: CBC and CMP essentially unchanged. Pelvic ultrasound demonstrates a large heterogeneous solid appearing mass measuring 13.7 x 12.9 x 10. ASSESSMENT: 1. Pelvic mass. 2. Abdominal pain. 3. Hypokalemia, resolved. 4. Mild leukocytosis. 5. Anemia of chronic disease. 6. Diabetes. 7. Hypertension. PLAN: We will change patient's Mer[place] to Percocet 10 to see if this helps any better. We will continue to follow along with BALLING MACHINE OPERATOR. Further orders per them.
[2016-07-01] MEDS: HUMULIN R (PARKWAY) SUBQ SCH ×2 (17:01→21:04)
[2016-07-02] MEDS: PERCOCET-10 PO PRN ×3 (01:33→13:27)
[2016-07-02] MEDS: ZOFRAN ODT PO PRN ×3 (04:57→13:27)
[2016-07-02] MEDS: HUMULIN R (PARKWAY) SUBQ SCH ×2 (06:10→11:27)
--- NOTE | 2016-07-02 07:58 | PROGRESS NOTE ---
DATE: 07/02/2016 SUBJECTIVE: Patient notes her pain is a little bit better controlled with Percocet. Denies any current fevers or chills. OBJECTIVE: Vital Signs: Reviewed. Temperature 98 degrees, pulse 81, respiratory rate 18, BP 139/81. General: Patient is well developed, well nourished. She is in no respiratory distress. She is awake, alert. Neck: Supple. CV: Regular rate. Chest: Relatively clear. Abdomen: Soft. LABS: WBCs 12, hemoglobin and hematocrit are 10 and 30. Glucose 113, albumin 2.5. ASSESSMENT: 1. Moderate protein calorie malnutrition. 2. Leukocytosis, improved. 3. Abdominal pain secondary to pelvic mass. 4. Hypokalemia, resolved. 5. Dehydration, stable. 6. Diabetes, stable. 7. Hypertension, stable. PLAN: We will discuss with CAR SPOTTER current plans and hopefully home soon.
[2016-07-02] MEDS: FERROUS SULFATE PO SCH (08:42)
[2016-07-02] MEDS: ZETIA PO SCH (08:42)
[2016-07-02] MEDS: PRINIVIL PO SCH (08:42)
[2016-07-02] MEDS: ZOCOR PO SCH (08:42)
[2016-07-02 11:34] VITALS: BP 128/75
--- NOTE | 2016-07-03 09:27 | DISCHARGE SUMMARY ---
ADMISSION DATE: 06/30/2016 DISCHARGE DATE: 07/02/2016 ADMISSION DIAGNOSES: 1. Abdominal pain. 2. Hypokalemia. 3. Intractable pain. 4. Mild dehydration. 5. Diabetes. 6. Hypertension. 7. Gastroparesis. 8. Anxiety. DISCHARGE DIAGNOSES: 1. Abdominal pain with pelvic mass. 2. Hypokalemia, resolved. 3. Intractable pain, improved. 4. Mild dehydration, resolved. 5. Diabetes. 6. Hypertension. 7. Gastroparesis. 8. Anxiety. SUMMARY OF FINDINGS: This is a 50-year-old female who presented to [facility] ER with complaints of severe abdominal pain, lower abdominal pain, and some vaginal bleeding. States that she had come to the emergency room earlier this month, on 06/22/2016, and was discharged home with p.o. pain medication and a followup with [facility]. She has an appointment with her [facility] doctor this coming , but she felt her pain had increased in severity and decided to come back to the emergency department. The emergency room doctor communicated with the [facility] and the decision of hospitalization was made. She states that she started bleeding 6 days prior to 06/22/2016 and at the beginning it was just a mild amount of bleeding, but it had increased over time. We did a pelvic ultrasound that showed a large heterogeneous solid-appearing mass measuring approximately 13.7 x 12.9 x 10.3 cm. It was not clear if it arises from the superior uterus. Neither ovary was visualized. There was a small amount of free fluid in the pelvis. We did an abdomen and pelvic CT also that showed some interval enlargement of a large pelvic mass which had been seen on a previous examination, no bowel obstruction, no abscess [facility] saw the patient on 06/30/2016 and stated that she was to walk in to his [facility] clinic the morning after discharge for an endometrial biopsy, that she would likely need a hysterectomy, and plan for further management outpatient. Her hemoglobin and hematocrit are stable at 10.2 and 30.1 at this time, and it is felt that she can safely be discharged home to be followed up outpatient. DISCHARGE MEDICATIONS: She will get a prescription for Percocet 10 one p.o. t.i.d., #45 with no refills. Zofran ODT 4 mg 1 p.o. q.4 hours p.r.n., #30 with 1 refill. She will continue her docusate sodium 100 mg p.o. p.r.n. Zetia 10 mg p.o. daily. Vytorin 10/10 mg 1 p.o. daily. Ferrous sulfate 325 mg p.o. b.i.d. Lantus Pen 10 units subcutaneously at bedtime. Lisinopril 10 mg p.o. daily. Aspirin 81 mg p.o. daily will be held until after her procedure. Zantac 300 mg p.o. b.i.d. FOLLOWUP: As stated in Dr. Rogel' progress note, she is to walk into his clinic for an endometrial biopsy on the day after discharge, which I assume would be tomorrow. She can call his office for clarification on that. She does already have a followup appointment with him on at 2 p.m. All discharge instructions were reviewed with the patient and she verbalized understanding. TIME FOR DISCHARGE SUMMARY: 35 minutes. Dictated by AYDE Paniagua for Randy Gooden MD
== END 2016-07-02 15:35 | disposition home or self-care (01) | DRG 392 ==
LOC: ED 10:31 → EDIPHOLD 16:58 → P.MEDSURG 17:44
PROVIDERS: ATTEND Family Medicine
DX: R19.09 Other intra-abdominal and pelvic swelling, mass and lump (principal); E44.0 Moderate protein-calorie malnutrition; K31.84 Gastroparesis; E11.43 Type 2 diabetes mellitus with diabetic autonomic (poly)neuropathy; E86.0 Dehydration; I10 Essential (primary) hypertension; E87.6 Hypokalemia; D63.8 Anemia in other chronic diseases classified elsewhere; N95.0 Postmenopausal bleeding; F41.9 Anxiety disorder, unspecified; Z68.24 Body mass index [BMI] 24.0-24.9, adult; F17.210 Nicotine dependence, cigarettes, uncomplicated; Z86.718 Personal history of other venous thrombosis and embolism; Z83.3 Family history of diabetes mellitus; Z82.49 Family history of ischemic heart disease and other diseases of the circulatory system; Z80.3 Family history of malignant neoplasm of breast; Z79.82 Long term (current) use of aspirin; Z79.899 Other long term (current) drug therapy; Z79.4 Long term (current) use of insulin
CPT/HCPCS: 74177; 76856; 80053; 81001; 82150; 82948; 83690; 85025; 96374; J1170; J1815; J2405; J2543; Q9967

== ENCOUNTER 2019-05-07 06:14 | Inpatient (IN) ==
[2019-05-07] MEDS ORDERED: POTASSIUM CHLORIDE 20 MEQ/SWI 20 MEQ/100 ML IVPB IV PRN (06:20)
[2019-05-07] MEDS ORDERED: SODIUM PHOSPHATE 30 MMOL in D5W 250 ML IV PRN (06:20)
[2019-05-07] MEDS ORDERED: SODIUM BICARBONATE 8.4% 100 MEQ in STERILE WATER INJ. 500 ML IV PRN (06:20)
[2019-05-07] MEDS ORDERED: POTASSIUM CHLORIDE 20% LIQUID PO PRN (06:20)
[2019-05-07] MEDS ORDERED: POTASSIUM CHLORIDE 10% LIQUID PO PRN (06:20)
[2019-05-07] MEDS ORDERED: D50W SYRINGE IV PRN ×3 (06:20→09:25)
[2019-05-07] MEDS ORDERED: NS 1,000 ML IV ONE (06:20)
[2019-05-07] MEDS ORDERED: HUMULIN R IV ONE ×2 (06:20→09:25)
[2019-05-07] MEDS ORDERED: MAGNESIUM SULFATE 2 GM/S.W.I. 2 GM/50 ML IVPB IV PRN (06:20)
[2019-05-07] MEDS ORDERED: ZOSYN 4.5 GM in NS 100 ML IV ONE (06:21)
[2019-05-07] MEDS ORDERED: DUONEB (A & A) INH ONE (06:21)
[2019-05-07] MEDS ORDERED: VANCOMYCIN 1 GM/NS 1 GM/250 ML IVPB IV ONE (06:21)
[2019-05-07] MEDS ORDERED: HUMULIN R 100 UNIT in NS 100 ML IV SCH ×2 (06:30→09:25)
[2019-05-07] MEDS ORDERED: NS 1,000 ML IV SCH (06:30)
--- NOTE | 2019-05-07 06:51 | PROVIDER DOCUMENTATION ---
HPI-Fever - General Chief Complaint: High Blood Sugar Stated Complaint: AMS Time Seen by Provider: 05/07/19 06:17 Source: EMS Allergies/Adverse Reactions: Patient Allergies Allergy/AdvReac Type Severity Reaction Status Date / Time Unable to Assess Allergy Unverified 05/07/19 06:30 - History of Present Illness-Fever Nature of Presenting Problem: 50ish yo AA female with IDDM, brought by EMS for AMS and hyperglycemia this am. Family told EMS that she has been having flu-like illness for the last 3-4 days, getting gradually worse. Stated that she hasn't been given her insulin in the last day because she isn't eating. EMS reports patient tachycardic, tachypneic, audible ronchi en route and [facility]SB[facility] read "high" No further history is available at this time as family is not arrived to ED yet. Fever Severity/Quality: reports: subjective Onset/Duration: reports: 4 days ago Timing: reports: still present, constant, getting worse Severity: reports: severe Context: reports: decreased mental status, confusion Recent Illness?: reports: other (Flu-like illness) Fever Therapy DELI MANAGER: Initiated none Cognitive Baseline: alert, oriented x3 Modifying Factors: improves with: nothing Associated Symptoms: reports: cough, fever/chills, shortness of breath, weakness Similar Symptoms Previously?: No Recently seen or treated by another doctor?: No - Glascow Coma Score Best Eye Response (Jose Francisco): (2) open to pain Best Verbal Response (Jose Francisco): (1) no verbal response Best Motor Response (Jose Francisco): (5) localizes to pain Archer Total: 8 Review of Systems - Adult - REVIEW OF SYSTEMS - ADULT ROS:: limited per condition Constitutional: reports: no symptoms reported Eyes: reports: no symptoms reported Ears, Nose, Mouth & Throat: reports: no symptoms reported Cardiovascular: reports: no symptoms reported Respiratory: reports: no symptoms reported Gastrointestinal: reports: no symptoms reported Genitourinary: reports: no symptoms reported Musculoskeletal: reports: no symptoms reported Integumentary: reports: no symptoms reported Neurological: reports: no symptoms reported Psychiatric: reports: no symptoms reported Endocrine: reports: no symptoms reported Hematologic/Lymphatic: reports: no symptoms reported Allergic/Immunologic: reports: no symptoms reported All Other Systems: Reviewed and Negative Past History - Adult - PAST MEDICAL HISTORY-ADULT Review of Records: reports: Old Records Reviewed, Nursing Assessment Review, Medications Reviewed, Social history reviewed & non-contributory. Major Childhood Illnesses: reports: denies history Cardiovascular: reports: denies history Respiratory: reports: denies history Gastrointestinal: reports: denies history Obstetrical/Gynecological: reports: denies history Genitourinary: reports: denies history Musculoskeletal: reports: denies history Neurological: reports: denies history Diabetes Type: Type 1 Diabetes controlled by:: Insulin Dependent Other Conditions: reports: denies history - PRIOR SURGERIES/PROCEDURES Surgical/Procedure History: reports: reviewed, not pertinent - IMMUNIZATION STATUS Childhood Immunizations: See Nurse Assessment Flu Vaccine: See Nurse Assessment - FAMILY HISTORY Family History: other (unknown) - SOCIAL HISTORY Smoking: other (unsure) Substance Use: none/never Living Situation: family Physical Exam-General - PHYSICAL EXAM-ADULT Initial Vital Signs Reviewed: Yes (tachycardic, tachypneic) - CONSTITUTIONAL General Appearance: moderate distress, lethargic, slow to respond - EYES Eyes: PERRL/EOMI, pink conjunctivae - HEAD, EARS, NOSE, MOUTH & THROAT HENMT: normocephalic/atraumatic, normal ENT inspection. negative: moist mucous membranes (dry) - NECK Neck: non-tender, full range of motion, supple, normal inspection - RESPIRATORY Respiratory: decreased breath sounds, accessory muscle use, rhonchi, wheezing, dull on percussion, increased rate - CARDIOVASCULAR Cardiovascular: normal peripheral pulses, regular rate, rhythm, no edema, no gallop, no JVD, no murmur, tachycardia - CHEST (BREASTS) Chest/Breast: no tenderness, mass/lump noted (large, firm, tennis ball sized mass right breast, lateral aspect with some slight skin chages overlying it). negative: nipple discharge - GASTROINTESTINAL (ABDOMEN) Abdominal Exam: normal bowel sounds, non tender, soft, no organomegaly, no pulsatile mass - LYMPHATIC Lymphatic: no adenopathy - MUSCULOSKELETAL Back Exam: normal inspection Extremity: normal inspection, no pedal edema, normal capillary refill Peripheral Pulses: radial (R): 2+, radial (L): 2+, dorsalis-pedis (R): 2+, jennifer salis-pedis (L): 2+ - SKIN Integumentary: normal color, normal turgor, warm/dry - NEUROLOGIC Neurologic: driver's license examiner II-XII nml as tested, abnormal cerebellar tests, abnormal gait (unable) - PSYCHIATRIC Psych/Mental Status: disoriented x 3 (unable) Progress - PLAN OF CARE/RESULTS Progress/Plan/Lab Results: Vital Signs - 8 hr 05/07/19 06:20 Temperature 98.2 F Pulse Rate 127 H Respiratory Rate 27 H Blood Pressure 102/83 O2 Sat by Pulse Oximetry 92 L Laboratory Results - last 24 hr 05/07/19 05/07/19 06:23 06:29 WBC 21.92 H RBC 4.08 L Hgb 11.9 L Hct 39.1 MCV 95.8 MCH 29.2 MCHC 30.4 L RDW Std Deviation 16.1 H Plt Count 357 MPV 12.1 H POC Glucose 500 H Orders Category Date Time Status Cardiac Monitoring DIRECTED Care 05/07/19 06:20 Active FSBS/Accucheck Result Q15M Care 05/07/19 06:20 Active FSBS/Accucheck Result Q1H Care 05/07/19 06:20 Active Foss Cath Insertion ORDERED Care 05/07/19 06:21 Active Hypoglycemia/FSBS <50 or Range of 50-70 PRN Care 05/07/19 06:20 Active Misc. NRSG Communication Order DIRECTED Care 05/07/19 06:56 Ordered Notify Physician ORDERED Care 05/07/19 06:20 Active Saline Loc DIRECTED Care 05/07/19 06:20 Active Saline Loc NOW Care 05/07/19 06:20 Active Vital Signs Order Q1H Care 05/07/19 06:20 Active ABG [RESP] Routine Lab 05/07/19 06:20 Ordered ACETONE SERUM [CHEM] Stat Lab 05/07/19 06:29 Received BLOOD CULTURE [BLDCUL] Stat Lab 05/07/19 06:53 Ordered CBC WITH NO DIFF [HEME] Stat Lab 05/07/19 06:29 Received CK PROFILE [SP CHEM] Stat Lab 05/07/19 06:29 Received COMPREHENSIVE METABOLIC PANEL [CHEM] Stat Lab 05/07/19 06:29 Received INFLUENZA SCREEN A/B Stat Lab 05/07/19 06:42 Ordered LACTATE, PLASMA [CHEM] Stat Lab 05/07/19 06:29 Received MAGNESIUM [CHEM] Stat Lab 05/07/19 06:29 Received PHOSPHORUS [CHEM] Stat Lab 05/07/19 06:29 Received TROPONIN T HIGH SENSITIVITY Stat Lab 05/07/19 06:29 Received URINALYSIS [URINALYSIS] Stat Lab 05/07/19 06:42 Or[address] URINE DRUG SCREEN PL Stat Lab 05/07/19 06:42 Ordered URINE DRUG SCREEN Stat Lab 05/07/19 06:42 Ordered 0.9% Sodium Chloride Inj [Ns] 1,000 ml Med 05/07/19 06:30 Active IV 500 mls/hr 0.9% Sodium Chloride Inj [Ns] 1,000 ml Med 05/07/19 06:20 Active IV 999 mls/hr 0.9% Sodium Chloride Inj [Ns] 100 ml Med 05/07/19 06:30 Active Insulin Human Regular [Humulin R] 100 unit IV Per Protocol mls/hr Albuterol 2.5MG/Ipratrop 0.5MG [Duoneb (A & A)] Med 05/07/19 06:21 Discontinued 3 ml INH NOW ONE Dextrose 50% Syringe [D50w Syringe] Med 05/07/19 06:20 Active 25 ml IV PRN PRN Dextrose 50% Syringe [D50w Syringe] Med 05/07/19 06:20 Active 50 ml IV PRN PRN Insulin Human Regular [Humulin R] Med 05/07/19 06:20 Discontinued 8 unit IV ONCE ONE Magnesium Sulfate 2 gm/S.w.i. Med 05/07/19 06:20 Active 2 gm in 50 ml IV ONCE PRN Piperacillin/Tazobactam [Zosyn] 4.5 gm Med 05/07/19 06:21 Active 0.9% Sodium Chloride Inj [Ns] 100 ml IV NOW Potassium Chloride 10% Liquid Med 05/07/19 06:20 Active 20 meq PO ONCE PRN PRN Potassium Chloride 20 Meq/Swi Med 05/07/19 06:20 Active 20 meq in 100 ml IV ONCE PRN Potassium Chloride 20 Meq/Swi Med 05/07/19 06:20 Active 20 meq in 100 ml IV ONCE PRN Potassium Chloride 20% Liquid Med 05/07/19 06:20 Active 40 meq PO ONCE PRN PRN Sodium Bicarbonate 8.4% 100 meq Med 05/07/19 06:20 Active Water, Sterile Inj [Sterile Water Inj] 500 ml IV ONCE PRN Sodium Phosphate 30 mmol Med 05/07/19 06:20 Active Dextrose 5%-Water Inj [D5w] 250 ml IV ONCE PRN Vancomycin 1 gm/Ns Med 05/07/19 06:21 Active 1 gm in 250 ml IV NOW Aerosol Treatments Routine Oth 05/07/19 06:22 Active Aerosol Treatments Stat Oth 05/07/19 06:22 Active Hypoglycemia Stat Oth 05/07/19 06:20 Ordered EKG [EKG] Routine Ther 05/07/19 06:20 Ordered Result Diagrams: 05/07/19 06:29 05/07/19 06:29 - REASSESSMENT Reassessment #1 Time Reassessed: 06:53 Status: improving (DKA protocol started, IV Vanc/Zosyn given) - EKG 1 Time of EKG reading by physician:: 06:54 EKG Read and Signed by:: Ankur Biswas EKG Interpretation (*Must complete 3 of following elements*): Abnormal Rate: 125 Rhythm: NSR [place]: normal QRS: Q Waves present (anterior and inferior) WI Interval: normal ST Wave: non-specific ST changes (VERY PEAKED T-WAVES) Comments: artifact present - CHANGE OF SHIFT REPORT (ED Provider) 1 Report Given and Care Transferred to:: Dr. Gem Segura Time of Transfer: 07:00 Items Pending: Labs, XRAY Results, Physician Consult/Arrival (admission) Departure - Departure Date of Disposition Decision: 05/07/19 Time of Disposition Decision: 09:05 DIAGNOSIS: Diabetic ketoacidosis with coma associated with diabetes mellitus due to underlying condition, Severe sepsis, Breast mass, right Disposition: ADMITTED INPATIENT 09 Certified Medical Emergency: Emergent Condition: Stable - Critical Care Note This patient required my direct & personal management of CC.: Yes Total Time (mins): 120 Critical Care Statement: This patient required my direct personal management to treat or rule out processes, the absence of which, could potentiallly result in sudden, clinically significant life or limb threatening deterioration. Comments: 120 min c/c time direct patient care /stabilization discuss with Dr Scott Attestation - Physician/ TAMARA Attestation Patient care was provided by Advanced Practice Provider:: Yes Advanced Practice Provider documentation review:: The Mid-level provider documentation, treatment plan and medical decision making was reviewed by the physician who agrees with all treatment and medical decision making by the MLP. The physician spent face to face time with patient:: Yes (direct patient care) Advanced Practice Provider documentation review:: Supervising physician onsite and consulted in the evaluation and care of this patient. The physician did have a face to face encounter with the patient.
[2019-05-07 06:54] LABS: ALLEN TEST YES; BE -26.5 mmoll (-3.0-3.0); BLOOD TYPE ARTERIAL; HCO3-(ACT) 4.1 mmoll (20.0-26.0); METHB 1.1 % (0.0-1.5); O2(CT) 17.6 mL/dL (15.0-23.0); O2HB 93.2 % (95.0-99.0); PO2(98.6) 86 mmHg (60-100); SAMPLE BLOOD; SAO2 96.1 % (95.0-100.0); THB 13.4 g/dL (11.5-17.4)
[2019-05-07 06:55] LABS: HEMATOCRIT 39.1 % (37.0-47.0); HEMOGLOBIN 11.9 g/dL (12.0-16.0); MCH 29.2 PG (27-31); MCHC 30.4 g/dL (33-37); MCV 95.8 FL (81-99); MPV 12.1 FL (7.4-10.4); RBC 4.08 XMIL (4.2-5.4); RDW 16.1 % (11.5-14.5); WBC 21.92 X1000 (4.8-10.8)
[2019-05-07 06:57] LABS: MODALITY CANNULA; PCO2(98.6) 18 mmHg (35-45); pH(98.6) 6.96 (7.35-7.45)
[2019-05-07 07:03] LABS: URINE SOURCE CATH
[2019-05-07 07:10] LABS: BILIRUBIN URINE NEGATIVE (NEGATIVE); BLOOD URINE TRACE (NEGATIVE); COLOR YELLOW; GLUCOSE URINE >1000 mg/dL (NEGATIVE); KETONE URINE 60 mg/dL (NEGATIVE); LEUKOCYTES URINE NEGATIVE (NEGATIVE); NITRITE URINE NEGATIVE (NEGATIVE); PROTEIN URINE 30 mg/dL (NEGATIVE); SP GRAVITY URINE 1.022; TURBIDITY URINE CLEAR (CLEAR); UR EPITHELIAL CELLS <10 /HPF (<10); URINE BACTERIA 1+ /HPF; URINE RBC <10 /HPF (<10); URINE WBC <10 /HPF (<10); UROBILINOGEN URINE NORMAL (NORMAL)
[2019-05-07 07:20] LABS: UR AMPHETAMINES QUAL NONE DETECTED (NONE DETECT); UR BARBITUATES QUAL NONE DETECTED (NONE DETECT); UR BENZODIAZEPIN QUAL NONE DETECTED (NONE DETECT); UR CANNABINOIDS QUAL PRESUMPTIVE POSITIVE (NONE DETECT); UR COCAINE QUAL NONE DETECTED (NONE DETECT); UR METHADONE QUAL NONE DETECTED (NONE DETECT); UR OPIATES QUAL NONE DETECTED (NONE DETECT); UR OXYCODONE QUAL NONE DETECTED (NONE DETECT); UR PCP QUAL NONE DETECTED (NONE DETECT)
[2019-05-07 07:29] LABS: AGAP 38; ALB/GLOB RATIO 0.9; ALBUMIN 3.2 g/dL (3.5-5.0); ALKALINE PHOSPHATASE 116 U/L (32-104); BUN 39 mg/dL (8-22); CALCIUM 9.6 mg/dL (8.8-10.2); CHLORIDE 88 mmol/L (98-107); CK PROFILE 49 U/L (24-173); COSMO 317; CREATININE 2.2 mg/dL (0.5-0.9); ESTIMATED GFR 20; GOT 12 U/L (10-30); GPT 7 U/L (10-36); MAGNESIUM 2.1 mg/dL (1.5-2.7); PHOSPHORUS 8.8 mg/dL (2.7-4.5); SODIUM 131 mmol/L (136-145); TCO2 5 mmol/L (25-35); TOTAL PROTEIN 6.7 g/dL (6.3-8.3)
--- NOTE | 2019-05-07 07:31 | EKG Report ---
Test Performed on : 05/07/2019 07:02:59 AM Test Reason : resp distress Blood Pressure : / mmHG Vent. Rate : 247 BPM Atrial Rate : 247 BPM P-R Int : 000 ms QRS Dur : 130 ms QT Int : 210 ms P-R-T Axes : 000 061 123 degrees QTc Int : 425 ms Wide QRS tachycardia. with premature supraventricular complexes. in a pattern of bigeminy. and with f requent premature ventricular complexes. Left bundle branch block Abnormal ECG No previous ECGs available Unconfirmed Result
[2019-05-07 07:34] LABS: ACETONE SERUM MODERATE (NEGATIVE); GLUCOSE 938 mg/dL (70-104); POTASSIUM 6.1 mmol/L (3.5-5.1)
[2019-05-07 08:20] LABS: INR 1.26
[2019-05-07 08:21] LABS: PTT 30.9 Seconds (22.3-41.8)
--- NOTE | 2019-05-07 09:15 | Diag Imaging Result Doc PS360 ---
CHEST-1 VIEW - 05/07/2019 INDICATION: Sepsis protocol COMPARISON: None FINDINGS: There are diffuse bilateral hazy interstitial infiltrates, with mainly upper lobe predominance. There is a trace right pleural effusion. Heart size is borderline. IMPRESSION: Nonspecific bilateral infiltrates. Pulmonary edema is suggested. Trace right pleural effusion. Electronically signed by Mo Bunn 05/07/2019 9:12 AM
[2019-05-07] MEDS ORDERED: VANCOMYCIN IV PER PHARMACY MISC SCH (09:25)
[2019-05-07] MEDS ORDERED: VANCOMYCIN 1 GM/NS 1 GM/250 ML IVPB ONE (09:31)
--- NOTE | 2019-05-07 09:41 | HISTORY AND PHYSICAL ---
SUBJECTIVE: This is, I believe, a young, black female who was sent in by ambulance and found to have diabetic ketoacidosis. She has been very lethargic, not able to answer questions. I do not have anything on her past medical history. PHYSICAL EXAMINATION: VITAL SIGNS: Blood pressure was 150/86, pulse 115, respirations 28, temperature 97.7. HEENT: Pupils are equal. LUNGS: Clear anterolateral and posterior. CARDIOVASCULAR EXAMINATION: Regular rhythm and rate without murmur or S3. CVP less than 6 cm. ABDOMEN: Soft, nondistended, nontender. EXTREMITIES: No pedal edema. She is moving all extremities. HEIGHT AND WEIGHT: Height is 5 feet 1 inch, weight 140 pounds. LABORATORY DATA: White count 21,920, hematocrit 39, platelet count 357,000. Sodium 131, potassium 6.1, chloride 88, BUN 39, creatinine 2.2, blood sugar 938, calculated osmolality is 317. AST 12, ALT was 7. CK is 49. Albumin 3.2. Plasma lactate 5.2. Prothrombin time 16.0, INR 1.26, PTT is 30. Urinalysis presumptive positive for cannabinoids. Acetone level was moderate. Urinalysis unremarkable except for 1+ bacteria. PH is 6.96, pCO2 is 18, PO2 is 86, O2 saturation is 93% lactate level is 5.4. ASSESSMENT AND PLAN: Diabetic ketoacidosis. I do not have any past medical history. Put her on diabetic protocol. We will give her fluids and insulin, and watch her electrolytes closely. Plan to move her to the intensive care unit. cc: Pepito Scott MD
[2019-05-07 09:51] LABS: HEMOGLOBIN A1C 8.9 % (4.8-6.0)
[2019-05-07 11:40] LABS: CALCIUM 8.7 mg/dL (8.8-10.2); CREATININE 2.3 mg/dL (0.5-0.9); MAGNESIUM 1.9 mg/dL (1.5-2.7); PHOSPHORUS 4.8 mg/dL (2.7-4.5)
[2019-05-07 12:32] LABS: ALLEN TEST YES; BE -13.6 mmoll (-3.0-3.0); BLOOD TYPE ARTERIAL; HCO3-(ACT) 14.2 mmoll (20.0-26.0); METHB 1.2 % (0.0-1.5); O2(CT) 16.5 mL/dL (15.0-23.0); O2HB 93.8 % (95.0-99.0); PCO2(98.6) 23 mmHg (35-45); PO2(98.6) 64 mmHg (60-100); SAMPLE BLOOD; SAO2 96.3 % (95.0-100.0); THB 12.5 g/dL (11.5-17.4); pH(98.6) 7.29 (7.35-7.45)
[2019-05-07 12:33] LABS: MODALITY CANNULA
[2019-05-07] MEDS: NS 1,000 ML IV SCH ×2 (12:44→18:25)
[2019-05-07 15:24] LABS: CALCIUM 8.9 mg/dL (8.8-10.2); CREATININE 1.8 mg/dL (0.5-0.9); MAGNESIUM 1.7 mg/dL (1.5-2.7); PHOSPHORUS 2.1 mg/dL (2.7-4.5); POTASSIUM 3.8 mmol/L (3.5-5.1)
[2019-05-07] MEDS: ZOSYN 3.375 GM in NS 50 ML IV SCH ×2 (17:20→22:02)
[2019-05-07 17:46] LABS: CALCIUM 8.8 mg/dL (8.8-10.2); CREATININE 1.5 mg/dL (0.5-0.9); MAGNESIUM 1.7 mg/dL (1.5-2.7); POTASSIUM 3.8 mmol/L (3.5-5.1)
[2019-05-07 18:20] LABS: URINE SOURCE CATH
[2019-05-07 18:22] LABS: BILIRUBIN URINE NEGATIVE (NEGATIVE); BLOOD URINE MODERATE (NEGATIVE); COLOR YELLOW; GLUCOSE URINE 500 mg/dL (NEGATIVE); KETONE URINE 20 mg/dL (NEGATIVE); LEUKOCYTES URINE NEGATIVE (NEGATIVE); NITRITE URINE NEGATIVE (NEGATIVE); PROTEIN URINE 70 mg/dL (NEGATIVE); SP GRAVITY URINE 1.022; TURBIDITY URINE HAZY (CLEAR); UR EPITHELIAL CELLS <10 /HPF (<10); URINE BACTERIA NEGATIVE /HPF; URINE RBC TNTC /HPF (<10); URINE WBC <10 /HPF (<10); UROBILINOGEN URINE NORMAL (NORMAL)
[2019-05-07] MEDS: POTASSIUM CHLORIDE 20 MEQ/SWI 20 MEQ/100 ML IVPB IV PRN ×2 (19:38→23:36)
[2019-05-07] MEDS: D5 NS 1,000 ML IV SCH (19:55)
--- NOTE | 2019-05-07 20:48 | OPERATIVE NOTE ---
PROCEDURE DATE: 05/07/2019 PREOPERATIVE DIAGNOSIS: Diabetic ketoacidosis. POSTOPERATIVE DIAGNOSIS: Diabetic ketoacidosis. PROCEDURE: Insertion of central venous catheter with ultrasound guidance. SURGEON: Danial Silvestre MD. ANESTHESIA: Local with lidocaine. ESTIMATED BLOOD LOSS: Scant. COMPLICATIONS: None apparent. FINDINGS: The right internal jugular vein was visualized with ultrasound. It was compressible, patent, without thrombus. TECHNIQUE: The patient was placed in Trendelenburg on her ER stretcher. Her right neck was prepped and draped in usual sterile fashion. 1% lidocaine was used to anesthetize the skin over the right internal jugular vein, which was found with ultrasound. The vein was then accessed with a needle and syringe under ultrasound guidance with 1 stick. Dark nonpulsatile blood was obtained. The wire passed through the needle easily. The track was dilated. A triple-lumen central venous catheter was passed over the wire into the vein via the Seldinger technique. The wire was removed. The catheter was anchored to the skin with silk suture. A sterile dressing was applied. All ports paulino back blood easily and were flushed with saline. cc: Danial Silvestre MD
[2019-05-07 22:42] LABS: CALCIUM 8.7 mg/dL (8.8-10.2); CREATININE 1.3 mg/dL (0.5-0.9); MAGNESIUM 2.4 mg/dL (1.5-2.7); PHOSPHORUS 1.9 mg/dL (2.7-4.5); POTASSIUM 4.2 mmol/L (3.5-5.1)
[2019-05-08] MEDS: NS 1,000 ML IV SCH ×4 (01:46→22:02)
[2019-05-08] MEDS: D5 NS 1,000 ML IV SCH (03:59)
[2019-05-08] MEDS: ZOSYN 3.375 GM in NS 50 ML IV SCH ×4 (03:59→22:03)
[2019-05-08 04:17] LABS: BASO# 0.07 X1000 (0.0-0.2); BASO% 0.4 % (0.0-0.8); EOS# 0.02 X1000 (0.0-0.7); EOS% 0.1 % (0.0-10.0); HEMATOCRIT 31.7 % (37.0-47.0); HEMOGLOBIN 10.6 g/dL (12.0-16.0); IMM GRAN# 0.59 X1000 (0.0-0.04); LYMPH# 1.23 X1000 (1.2-3.4); LYMPH% 6.2 % (20.5-51.1); MCHC 33.4 g/dL (33-37); MCV 86.6 FL (81-99); MONO# 0.97 X1000 (0.11-0.59); MONO% 4.9 % (1.7-9.3); MPV 10.8 FL (7.4-10.4); NEUT# 16.81 X1000 (1.4-6.5); NEUT% 85.4 % (42.2-75.2); PLT 272 X1000 (130-400); RBC 3.66 XMIL (4.2-5.4); RDW 14.5 % (11.5-14.5); WBC 19.69 X1000 (4.8-10.8)
[2019-05-08 04:40] LABS: CALCIUM 8.8 mg/dL (8.8-10.2); CREATININE 1.2 mg/dL (0.5-0.9); MAGNESIUM 2.2 mg/dL (1.5-2.7); PHOSPHORUS 1.2 mg/dL (2.7-4.5)
[2019-05-08 04:54] LABS: LYMPHS 7 % (21-51); MONO 2 % (1-9); SEGS 91 % (42-75)
[2019-05-08] MEDS ORDERED: D5 NS 1,000 ML IV SCH (04:56)
[2019-05-08] MEDS: HUMULIN R SUBQ SCH ×4 (06:21→22:03)
[2019-05-08] MEDS: LANTUS INSULIN SUBQ SCH (08:14)
[2019-05-08] MEDS: VANCOMYCIN 1,000 MG in NS 250 ML IV SCH (11:00)
--- NOTE | 2019-05-08 16:55 | PROGRESS NOTE ---
DATE: 05/08/2019 SUBJECTIVE: Ms. Darden is doing much better. She is awake and alert. Her sugars have come down. She is on subcu insulin and she is asking for food. OBJECTIVE: Vital Signs: She remains afebrile, temperature 98.7 degrees, pulse 94, respirations 34, blood pressure 121/68,. HEENT: Pupils are equal and round. Lungs: Clear in all lung merchant. Cardiovascular: Regular rhythm and rate without murmur or S3. Urine output is 3400 mL. LABORATORY DATA: Blood sugar 500,197, 245 and 80, the last several ones. Dr. Silvestre put in the right internal jugular vein, visualized on ultrasound and was compressible without any thrombus. Chest x-ray from yesterday, nonspecific bilateral infiltrates, pulmonary edema suggesting. White count 86172, hematocrit 31, platelet count 272,000. Sodium 143, potassium 4.0, chloride 114, BUN 20, creatinine 1 ASSESSMENT AND PLAN: Came in with diabetic ketoacidosis. She reports that she has been out of insulin for several days. Review of her current orders she is getting normal saline at 125 mL an hour. We were giving her vancomycin and Zosyn, which I think we can probably stop those. I will continue those today and we have her on subcu insulin. I think she can probably move to the floor. cc: Pepito Scott MD
[2019-05-08] MEDS: FLEXERIL PO PRN (18:41)
[2019-05-09] MEDS: FLEXERIL PO PRN ×3 (02:10→18:55)
[2019-05-09] MEDS: NS 1,000 ML IV SCH ×3 (02:10→23:28)
[2019-05-09] MEDS ORDERED: VANCOMYCIN 1,250 MG in NS 250 ML IV SCH (04:00)
[2019-05-09] MEDS: HUMULIN R SUBQ SCH ×4 (06:53→23:28)
[2019-05-09] MEDS: ZOSYN 3.375 GM in NS 50 ML IV SCH ×2 (06:53→11:31)
[2019-05-09 07:20] LABS: BASO# 0.04 X1000 (0.0-0.2); BASO% 0.3 % (0.0-0.8); EOS# 0.22 X1000 (0.0-0.7); EOS% 1.7 % (0.0-10.0); HEMOGLOBIN 11.2 g/dL (12.0-16.0); IMM GRAN# 0.46 X1000 (0.0-0.04); IMM GRAN% 3.5 % (0.0-0.5); LYMPH# 0.92 X1000 (1.2-3.4); MCH 28.6 PG (27-31); MCHC 32.9 g/dL (33-37); MONO# 0.58 X1000 (0.11-0.59); MONO% 4.4 % (1.7-9.3); MPV 10.9 FL (7.4-10.4); NEUT# 10.83 X1000 (1.4-6.5); NEUT% 83.1 % (42.2-75.2); PLT 241 X1000 (130-400); RBC 3.91 XMIL (4.2-5.4); RDW 14.7 % (11.5-14.5); WBC 13.05 X1000 (4.8-10.8)
[2019-05-09] MEDS: VANCOMYCIN 1,000 MG in NS 250 ML IV SCH (09:38)
[2019-05-09] MEDS: LANTUS INSULIN SUBQ SCH (09:38)
--- NOTE | 2019-05-09 13:43 | PROGRESS NOTE ---
DATE: 05/09/2019 Ms. Darden is doing better, eating better. She of course would like more of her pain medicine and wanted to know if there was any way I could go up on her pain medicine. OBJECTIVE: She remains afebrile, temperature 98.6 degrees, pulse 92, respirations 16, blood pressure 147/78.HEENT: Pupils are equal and round. Lungs: Clear in all lung merchant. Cardiovascular: Regular rhythm and rate without murmur or S3. Abdomen: Soft. Skin: Warm and dry. ASSESSMENT AND PLAN: Diabetic ketoacidosis. She ran out of her insulin. She is doing much better. She is on a sliding scale. She is on a diabetic diet. We can stop her vancomycin and Zosyn. Hopefully can go home soon. She will need to get back on her regimen of regular insulin. I think she was on NovoLog 70/30, 7 units daily and Lantus insulin 10 units subcutaneous at bedtime. cc: Pepito Scott MD
[2019-05-10] MEDS: FLEXERIL PO PRN ×3 (02:09→22:18)
[2019-05-10] MEDS: NS 1,000 ML IV SCH ×3 (05:01→21:18)
[2019-05-10] MEDS: HUMULIN R SUBQ SCH ×4 (07:14→21:19)
[2019-05-10] MEDS: LANTUS INSULIN SUBQ SCH (09:16)
--- NOTE | 2019-05-10 12:59 | PROGRESS NOTE ---
DATE: 05/10/2019 SUBJECTIVE: Ms Darden is feeling better. She says that she does not feel like she is breathing real good, but she appears to be breathing comfortably. I listened to her lungs, and they are clear. I will get a chest x-ray on her. She remains afebrile. We discontinued her Foss catheter yesterday and came to the floor yesterday. OBJECTIVE: Vital signs: She remains afebrile, temperature 98.5 degrees, pulse 112, respirations 20, blood pressure 153/76. HEENT: Pupils are equal and round. Lungs: Clear in all lung merchant. Cardiovascular: Regular rhythm and rate without murmur or S3. Intake and Output: Urine output is 4500 mL. DIAGNOSTIC DATA: Blood sugar 100, 251, 257. ASSESSMENT AND PLAN: Diabetic ketoacidosis which is resolved. She is eating. We will try and get her up out of bed and encourage her take her insulin, try and instruct her on insulin management and sugar management at home. We will check a chest x-ray, but her lungs sound good. cc: Pepito Scott MD
--- NOTE | 2019-05-10 13:13 | Diag Imaging Result Doc PS360 ---
EXAM: CHEST-PORTABLE 05/10/2019 HISTORY: sob TECHNIQUE: AP portable upright at 1300 COMMENT: There is diffuse ill-defined opacity bilaterally. There is blunting the right costophrenic angle which has not changed since 05/07/2019 and may be fibrotic. The pulmonary opacities particularly in the lower lung merchant have worsened since the previous study. Some of this may be due to less optimal expansion of the chest however. IMPRESSION: Pulmonary edema and/or pneumonia. Electronically signed by Denzel Bruno 05/10/2019 1:10 PM
[2019-05-11] MEDS: NS 1,000 ML IV SCH ×3 (05:36→21:39)
[2019-05-11] MEDS: HUMULIN R SUBQ SCH ×4 (06:22→21:30)
[2019-05-11] MEDS: FLEXERIL PO PRN ×3 (06:22→23:24)
--- NOTE | 2019-05-11 09:29 | PROGRESS NOTE ---
DATE: 05/11/2019 SUBJECTIVE: Ms. Darden is feeling better. She has about eaten all of her breakfast so we are going to start some physical therapy. OBJECTIVE: She remains afebrile, temperature 98.2 degrees, pulse 100, respirations 20, and blood pressure 129/64. Pupils are equal and round. Lungs are clear in all lung merchant. Cardiovascular exam regular rhythm and rate without murmur or S3. Abdomen is soft. Skin is warm and dry. Urine output is 5900 mL. Chest x-ray shows pulmonary edema versus pneumonia that was from x-ray yesterday. She has no clinical sign of pneumonia. ASSESSMENT AND PLAN: Diabetic ketoacidosis, which is improved. We will check some more electrolytes and check her bicarbonate again today. We are going to get her up and start ambulating, and see if we can maybe get her out of the hospital tomorrow. She is on Lantus insulin 10 units, and on the sliding scale protocol. Looking at her blood sugars 156, 158, and 167. At home, she was taking the Vytorin. She was on the combination simvastatin and ezetimibe. She was also supposed to be on 70/30 units, 7 units I think in the morning, and 10 units at night. cc: Pepito Scott MD
[2019-05-11] MEDS: LANTUS INSULIN SUBQ SCH (09:39)
[2019-05-12] MEDS: NS 1,000 ML IV SCH ×2 (05:56→12:55)
[2019-05-12] MEDS: HUMULIN R SUBQ SCH ×4 (05:59→23:12)
[2019-05-12] MEDS: LANTUS INSULIN SUBQ SCH ×2 (08:23→23:21)
[2019-05-12] MEDS: FLEXERIL PO PRN ×2 (11:16→19:15)
[2019-05-12] MEDS ORDERED: COLACE PO PRN (15:39)
[2019-05-12] MEDS ORDERED: LASIX IV ONE (15:45)
[2019-05-12] MEDS: HUMALOG SUBQ SCH (17:02)
[2019-05-13] MEDS: FLEXERIL PO PRN ×2 (03:56→12:48)
[2019-05-13] MEDS: HUMULIN R SUBQ SCH ×4 (06:26→20:56)
--- NOTE | 2019-05-13 07:52 | Diag Imaging Result Doc PS360 ---
CHEST-2 VIEWS - 05/13/2019 INDICATION: hypoxia COMPARISON: 05/10/2019 FINDINGS: Stable right central line in good position. There has been slight decrease in density of the diffuse bilateral interstitial infiltrates/edema. Stable small right pleural effusion. Heart size remains top normal. IMPRESSION: Slight improvement in the extensive bilateral interstitial infiltrates/edema. Electronically signed by Mo Bunn 05/13/2019 7:50 AM
[2019-05-13] MEDS: ZETIA PO SCH (09:59)
[2019-05-13] MEDS: ZOCOR PO SCH (09:59)
[2019-05-13] MEDS: PRINIVIL PO SCH (09:59)
[2019-05-13] MEDS: HUMALOG SUBQ SCH ×3 (10:00→16:17)
--- NOTE | 2019-05-13 10:55 | EKG Report ---
Test Performed on : 05/13/2019 10:44:07 AM Test Reason : CHF Blood Pressure : / mmHG Vent. Rate : 102 BPM Atrial Rate : 102 BPM P-R Int : 152 ms QRS Dur : 084 ms QT Int : 368 ms P-R-T Axes : 059 002 034 degrees QTc Int : 479 ms Sinus tachycardia. Low voltage QRS Septal infarct , age undetermined Abnormal ECG No previous ECGs available Confirmed by Bryan RHODES, Corey Parham ([id number]) on 05/14/2019 2:34:33 PM
[2019-05-13 11:16] LABS: HEMATOCRIT 31.4 % (37.0-47.0); HEMOGLOBIN 9.8 g/dL (12.0-16.0); MCH 28.1 PG (27-31); MCHC 31.2 g/dL (33-37); MPV 10.8 FL (7.4-10.4); RBC 3.49 XMIL (4.2-5.4); RDW 15.1 % (11.5-14.5); WBC 9.78 X1000 (4.8-10.8)
--- NOTE | 2019-05-13 11:22 | PROGRESS NOTE ---
DATE: 05/13/2019 SUBJECTIVE: Today, Ms. Darden refers to be doing quite okay, did not have any new complaints. OBJECTIVE: Vital Signs: Blood pressure is 153/77, pulse of 103, respirations 16, temperature is 98.5 degrees, the patient is saturating 98% on 2 L. General: Ms. Darden is a 53-year-old, female. She is in bed. She did not seem to be in any distress. She is still on the nasal cannula. HEENT: Mucosa is pink and moist. Anicteric. Acyanotic. Neck: Supple. Some mild JVD noted. Chest: Air entry is bilaterally reduced. There is some faint wheezing bilaterally. There are also some diffuse wet crackles. Cardiovascular: Regular rate and rhythm. I did not hear any murmurs. GI: Abdomen is soft, nontender. Bowel sounds present. Extremities: There is 1+ pedal edema bilaterally. AIR SAMPLER: The patient is awake, alert, and oriented. LABORATORY DATA: Glucose was 163 this morning. Rest of chemistry as well as CBC is still pending. ASSESSMENT: 1. Diabetic ketoacidosis on presentation, resolved. 2. Severe uncontrolled diabetes mellitus on presentation with a glucose level of 938. A1c is 8.9, improved on insulin regimen. 3. Acute on chronic kidney injury. Creatinine is down to 1.2, back to baseline. 4. Mild fluid overload. Unsure if it was from overhydration or if the patient has an underlying cardiac issue. Will get an echocardiogram to check on her ejection fraction. 5. Suspected undiagnosed chronic obstructive pulmonary disease. 6. Acute hypoxemic respiratory failure. The patient continues to be on nasal cannula. 7. Tobacco use and abuse. The patient has been advised on cessation. In general, I think Ms. Darden is doing well. The diabetic ketoacidosis is completely resolved. We suspect that she has underlying chronic obstructive pulmonary disease, for which she needs to follow up with Pulmonary Medicine. We are getting an echocardiogram to check on her ejection fraction. If that is within normal range, I think she can be discharged to follow up on an outpatient basis. cc: Danny Zhang MD
[2019-05-13 12:20] LABS: ESTIMATED GFR > 60
[2019-05-13 12:23] LABS: AGAP 12; ALB/GLOB RATIO 0.6; ALBUMIN 2.4 g/dL (3.5-5.0); ALKALINE PHOSPHATASE 93 U/L (32-104); BUN 4 mg/dL (8-22); CALCIUM 8.7 mg/dL (8.8-10.2); CHLORIDE 103 mmol/L (98-107); COSMO 287; CREATININE 0.7 mg/dL (0.5-0.9); GLUCOSE 223 mg/dL (70-104); GOT 15 U/L (10-30); GPT < 5 U/L (10-36); MAGNESIUM 1.4 mg/dL (1.5-2.7); POTASSIUM 3.1 mmol/L (3.5-5.1); SODIUM 142 mmol/L (136-145); TCO2 27 mmol/L (25-35); TOTAL BILIRUBIN 0.53 mg/dL (0.20-1.00); TOTAL PROTEIN 6.3 g/dL (6.3-8.3)
[2019-05-13] MEDS: NORCO-7.5 PO PRN (20:49)
[2019-05-13] MEDS: LANTUS INSULIN SUBQ SCH (20:56)
[2019-05-14] MEDS: HUMULIN R SUBQ SCH ×4 (06:05→21:32)
[2019-05-14 08:41] LABS: AGAP 4; ALBUMIN 2.5 g/dL (3.5-5.0); BUN 7 mg/dL (8-22); CALCIUM 8.6 mg/dL (8.8-10.2); CHLORIDE 104 mmol/L (98-107); COSMO 287; CREATININE 0.8 mg/dL (0.5-0.9); ESTIMATED GFR > 60; GLUCOSE 179 mg/dL (70-104); MAGNESIUM 1.5 mg/dL (1.5-2.7); POTASSIUM 2.9 mmol/L (3.5-5.1); SODIUM 143 mmol/L (136-145); TCO2 35 mmol/L (25-35)
[2019-05-14] MEDS: FLEXERIL PO PRN (08:55)
[2019-05-14] MEDS: ZETIA PO SCH (08:55)
[2019-05-14] MEDS: PRINIVIL PO SCH (08:55)
[2019-05-14] MEDS: ZOCOR PO SCH (08:55)
[2019-05-14] MEDS: HUMALOG SUBQ SCH ×3 (08:57→16:41)
[2019-05-14] MEDS ORDERED: KLOR-CON PO ONE (09:00)
[2019-05-14] MEDS: NORCO-7.5 PO PRN ×2 (13:09→21:31)
[2019-05-14] MEDS ORDERED: LASIX IV ONE (15:25)
--- NOTE | 2019-05-14 19:26 | PROGRESS NOTE ---
DATE: 05/14/2019 SUBJECTIVE: Today, Ms. Darden refers to be doing a lot better. She still has some mild shortness of breath. She is on supplemental oxygen via nasal cannula. OBJECTIVE: Vital signs: Blood pressure 140/66, pulse of 102, respirations 16, temperature is 98.5 degrees. General: Ms. Darden is a 53-year-old female. She is in bed in no distress. HEENT: Mucosa is pink and moist. Anicteric. Acyanotic. Neck: Supple. Chest: Good air entry bilaterally. There is still a few end-expiratory wheezing and some crackles in the posterior lung merchant. Cardiovascular: Regular rate and rhythm. No murmurs, no rubs, no gallops. GI: Abdomen is soft, nontender. Bowel sounds are present. Extremities: 1+ pedal edema. NETWORK CONTRACT MANAGER: Patient is awake, alert, and oriented. There is no focal deficit. LABORATORY DATA: Potassium is 2.9. Rest of chemistry for the most part is unremarkable. Potassium, phosphorus, and magnesium have all been normalized. Patient's pro B is slightly more elevated than yesterday. No imaging studies today. Patient is pending an echo report. ASSESSMENT: 1. Diabetes mellitus, uncontrolled on presentation, complicated with diabetic ketoacidosis. 2. Diabetes mellitus with presenting A1c of 8.9. Patient is on insulin regimen. 3. Acute kidney injury, resolved. 4. Mild fluid overload, most likely due to fluid resuscitation during the diabetic ketoacidosis management; however, an underlying cardiac abnormality cannot be entirely ruled out. Echocardiogram has been ordered. The patient is getting a dose of Lasix today. 5. Suspected undiagnosed chronic obstructive pulmonary disease with mild bronchospasm. We will continue with bronchodilation therapy. 6. Acute hypoxemic respiratory failure. Patient continues to be on nasal cannula. We will continue to titrate this. 7. Tobacco use and abuse. Cessation has been advised. 8. Hypokalemia. Will be replaced. 9. Protein-calorie malnutrition. Patient is on supplemental diet. PLAN: In general, I think Ms. Darden is doing a whole lot better. Diabetic ketoacidosis is resolved. She still shows mild signs of congestion. She is getting a dose of Lasix today. We will continue with her current medical management. We are pending an echocardiogram report and then will make further recommendations. cc: Danny Zhang MD
--- NOTE | 2019-05-14 20:24 | ECHO REPORT ---
ORDER DATE: 05/13/2019 INTERPRETING PHYSICIAN: Danny Benedict MD ECHOCARDIOGRAPHIC MEASUREMENTS: 1. Interventricular septum 1.5. 2. Left ventricular posterior wall 1.1. 3. Diastolic diameter 3.1. 4. Left atrium 3. 5. Aorta 3.2. 6. Normal left ventricular cavity size. SUMMARY OF THE 2-DIMENSIONAL IMAGIN. Estimated ejection fraction of 60 to 65 percent. There is grade 1 diastolic dysfunction. 2. Aortic valve leaflets were trileaflet. 3. Mitral valve was normal. 4. Tricuspid valve was normal. 5. Pulmonic valve was normal. 6. There is mild tricuspid regurgitation. Peak velocity across the tricuspid valve was 3 m/sec. 7. Pulmonary artery systolic pressure 46 mmHg. 8. There is mild mitral regurgitation. Peak velocity across the aortic valve less than 2 m/sec by Doppler studies. There is no aortic stenosis or regurgitation. 9. There is no pericardial effusion or obvious intracardiac mass or thrombus seen. cc: MD Danny Hart MD
[2019-05-14] MEDS ORDERED: LANTUS INSULIN SUBQ SCH (21:00)
[2019-05-15] MEDS: FLEXERIL PO PRN ×2 (01:23→10:03)
[2019-05-15] MEDS: NORCO-7.5 PO PRN ×2 (04:02→09:14)
[2019-05-15] MEDS: HUMULIN R SUBQ SCH ×2 (06:20→11:14)
--- NOTE | 2019-05-15 08:32 | Diag Imaging Result Doc PS360 ---
CT ANGIOGRM PULMONARY ARTERIES - 05/15/2019 INDICATION: Hypoxemic failure TECHNIQUE: Axial CT images were obtained after administering intravenous contrast. Coronal MIP images were generated. COMPARISON: Breast ultrasound 07/21/2018 FINDINGS: There is a large heterogeneously, peripherally enhancing right breast mass. This was present and correctly reported on the prior ultrasound. This mass measures 6 x 5 cm. Previously this measured 3.4 x 2.6 cm. There is moderate mediastinal lymphadenopathy, mainly right hilar and pretracheal lymphadenopathy. There is no pulmonary embolism. Heart size is top normal. No pericardial effusion. Upper abdominal images are unremarkable. There are diffuse bilateral mixed, primarily interstitial infiltrates compatible with pulmonary edema. No significant pleural effusions. There are moderate degenerative changes of the spine. No acute or suspicious bony lesion. IMPRESSION: 1. Primary right breast cancer as was reported previously. Appropriate action recommended. 2. Diffuse infiltrates compatible with pulmonary edema. 3. Indeterminate mediastinal lymphadenopathy. Could very well be due to the edema. This exam was performed using automated exposure control, adjustment of mA or kV according to patient size, and/or use of iterative reconstruction technique Electronically signed by Mo Bunn 05/15/2019 8:30 AM
[2019-05-15] MEDS ORDERED: LASIX IV ONE (08:48)
[2019-05-15] MEDS: ZOCOR PO SCH (10:00)
[2019-05-15] MEDS: PRINIVIL PO SCH (10:00)
[2019-05-15] MEDS: ZETIA PO SCH (10:00)
[2019-05-15] MEDS: HUMALOG SUBQ SCH ×2 (10:03→12:31)
[2019-05-15 12:23] VITALS: BP 136/71
--- NOTE | 2019-05-16 10:44 | DISCHARGE SUMMARY ---
ADMISSION DATE: 05/07/2019 DISCHARGE DATE: 05/15/2019 DISPOSITION: Is home. FOLLOW-UP: Will be: 1. Dr. Salmon. 2. Dr. Hamilton. 3. Dr. Bunn. CONSULTATION DURING THIS ADMISSION: Surgery was consulted. The patient was seen by Dr. Silvestre and insertion of a jugular central line catheter was placed by him. ADMISSION DIAGNOSIS: Diabetic ketoacidosis. DIAGNOSES AT THE TIME OF DISCHARGE: 1. Uncontrolled diabetes mellitus type 2 on presentation, complicated with diabetic ketoacidosis. 2. Acute kidney injury at presentation, resolved. 3. Acute hypoxemic respiratory failure during the hospital course secondary to combination of pulmonary edema and undiagnosed underlying chronic obstructive pulmonary disease. 4. Bronchospasms, most likely due to chronic obstructive pulmonary disease/pulmonary edema. 5. Tobacco use and abuse. The patient has been counseled. 6. Mild fluid overload, improved. We think this was secondary to fluid resuscitation during the diabetic ketoacidosis. 7. Hypokalemia. 8. Protein-calorie malnutrition. 9. Right breast mass concerning for a breast malignancy. The patient refers to know about the swelling in her breast from somewhere in June last year and that she has been following up with Dr. Salmon to do other further investigations on this. I have also recommended that Ms. Darden follows up with Dr. Da Silva to expedite the process. DISCHARGE MEDICATIONS: 1. Iron sulfate 325 p.o. b.i.d. 2. Lisinopril 10 mg p.o. daily. 3. Vytorin 1 tab daily. 4. Zantac 300 b.i.d. 5. Colace 100 mg p.r.n. 6. [place] 7.5 q.4 p.r.n. 7. Azithromycin 250 p.o. daily, for 5 days. 8. Prednisone 20 mg p.o. daily. 9. Glargine 35 units subcutaneous daily. 10. Furosemide 20 mg p.o. daily for 20 days. 11. P.r.n. albuterol inhaler as needed. PRESENTING COMPLAINT: Altered mental status, unable to answer questions. HISTORY OF PRESENTING COMPLAINT: Ms. Darden is a 53-year-old female who was brought to the ER by EMS because she was found to be lethargic. On presentation, she was evaluated and was found to be in DKA. She was also positive for cannabinoids on her urine sample. She was subsequently admitted to the ICU for further medical care. HOSPITAL COURSE: Ms. Darden was initially admitted to the ICU. DKA protocol was instituted. She responded well to that. So, the DKA got resolved and glucose got under control. She was subsequently transferred out of the ICU. Ms. Darden continues to shows gradual improvement. However, she was found to have mild fluid overload and some wheezing, so a workup was done to rule out any cardiac etiology. Her pro B was minimally elevated by her echocardiogram did not show any systolic dysfunction. There was a mild grade 1 diastolic dysfunction mentioned[address] A CT scan of the chest, which was done also today, shows diffuse infiltrate compatible with pulmonary edema and intermediate mediastinal lymphadenopathy. The patient was given a couple doses of Lasix and she is going to be on Lasix for at least 10 to 20 days and follow up with Pulmonary and her primary care doctor. Ms. Darden has an extensive history of tobacco use. We suspect that she has an underlying COPD, which is not diagnosed. We have advised that she follows up with Dr. Hamilton for diagnosis and adequate outpatient management. Ms. Darden was also found to have a right breast mass on a CT scan. This morning when I evaluated her, she has a very large mass in the lateral upper quadrant of the right breast with minimal erythematous changes of the overlying skin. The mass is very adherent. It is pretty large, almost occupying the entire outer quadrant almost to the nipple. She says she knows about it and that Dr. Salmon also knows about it and they are working it out. I have advised that she follows up with Dr. Da Silva as well. All the discharge instructions have been discussed with her. She voiced understanding. TIME SPENT FOR DISCHARGE: Is 35 minutes. cc: MD Alan Vizcarra MD Mamoun I. Najjar, MD Dr. Shah
== END 2019-05-15 14:42 | disposition home or self-care (01) | DRG 637 ==
LOC: EDBD → ED 06:14 → EDIPHOLD 09:15 → SUATTDRO 09:15 → MERGE 09:15 → ICU 13:52 → 3N 05-08 16:57
PROVIDERS: ATTEND Internal Medicine